=== PATIENT | female | born 1960 | race Hispanic/Latino ===

== ENCOUNTER 2017-11-25 21:25 | Inpatient (IN) | payer MEDICARE ==
[2017-11-25] MEDS ORDERED: PROVENTIL IH ONE (21:30)
[2017-11-25] MEDS ORDERED: ATROVENT IH ONE (21:30)
[2017-11-25] MEDS ORDERED: NACL 0.9% 1000 ML 1,000 ML IV ONE (21:30)
--- NOTE | 2017-11-25 21:33 | Emergency Department Report ---
ED General Adult HPI - General Stated complaint: COPD/RYLEY Time Seen by Provider: 11/25/17 21:29 Source: patient - History of Present Illness Initial comments: History of chronic lung disease previous smoker here for evaluation of acute respiratory distress worse 2 days received magnesium and Solu-Medrol and an albuterol neb in route, arrived in moderate resp distress, pt received hour long duoneb, and cxr was obtained -: Gradual, hour(s), days(s) Location: chest Consistency: intermittent Associated Symptoms: cough, diaphoresis, fever/chills, malaise, shortness of breath, weakness. denies: chest pain, headaches, loss of appetite, rash, seizure, syncope - Related Data Home Medications Medication Instructions Recorded Confirmed Last Taken Albuterol *Only Ed* [Proventil 2.5 mg IH Q4H PRN 07/12/16 07/12/16 07/12/16 0.5% NEBS] Carvedilol [Coreg] 6.25 mg PO BID 07/12/16 07/12/16 07/11/16 Furosemide [Lasix TAB] 40 mg PO DAILY 07/12/16 07/12/16 07/11/16 Iron,Carb/Vit C/Vit B12/Folic 1 tab PO DAILY 07/12/16 07/12/16 Unknown [Iron 100 Plus Tablet] LORazepam [Ativan] 1 mg PO Q4H PRN 07/12/16 07/12/16 Unknown Lisinopril [Zestril TAB] 10 mg PO QDAY 07/12/16 07/12/16 07/11/16 Simvastatin [Zocor TAB] 20 mg PO QHS 07/12/16 07/12/16 07/11/16 Spironolactone [Aldactone] 25 mg PO QDAY 07/12/16 07/12/16 Unknown Tiotropium [Spiriva] 1 puff IH BID 07/12/16 07/12/16 07/11/16 Tiotropium [Spiriva] 18 mcg IH BID 07/12/16 07/12/16 Unknown Previous Rx's Medication Instructions Recorded Last Taken Type Albuterol Sulfate [Albuterol 0.63% 0.63 mg IH TID PRN #1 box 12/03/15 07/12/16 Rx NEBS] Symbicort 160-4.5 (Nf) 1 puff INHALATION BID #1 12/03/15 Unknown Rx Levofloxacin [Levaquin TAB] 750 mg PO Q24H #5 tablet 07/16/16 Unknown Rx predniSONE [Deltasone] 50 mg PO QDAY #5 tab 07/16/16 Unknown Rx Allergies Allergy/AdvReac Type Severity Reaction Status Date / Time No Known Allergies Allergy Verified 08/06/15 17:36 ED Review of Systems ROS: Stated complaint: COPD/RYLEY Other details as noted in HPI Comment: All other systems reviewed and negative Constitutional: fever, malaise ENT: denies: dental pain, hearing loss, epistaxis Respiratory: cough, shortness of breath. denies: SOB with exertion, SOB at rest , stridor Cardiovascular: denies: chest pain, palpitations, dyspnea on exertion, orthopnea , edema, syncope, paroxysmal nocturnal dyspnea Gastrointestinal: denies: abdominal pain, nausea, vomiting, diarrhea, constipation, hematemesis, melena, hematochezia Skin: denies: rash, lesions, change in color, change in hair/nails, pruritus Neurological: denies: numbness, paresthesias, confusion Psychiatric: denies: auditory hallucinations, visual hallucinations, homicidal thoughts ED Past Medical Hx - Past Medical History Hx Hypertension: Yes Hx Heart Attack/AMI: No Hx Congestive Heart Failure: No Hx Diabetes: No Hx Deep Vein Thrombosis: No Hx Asthma: Yes Hx COPD: Yes - Surgical History Hx Coronary Stent: No Hx Pacemaker: No Hx Internal Defibrillator: No Additional Surgical History: Bilateral tubal ligation - Social History Smoking Status: Current Every Day Smoker - Medications Home Medications: Home Medications Medication Instructions Recorded Confirmed Last Taken Type Albuterol Sulfate [Albuterol 0.63% 0.63 mg IH TID PRN #1 box 12/03/15 07/12/16 07/12/16 Rx NEBS] Symbicort 160-4.5 (Nf) 1 puff INHALATION BID #1 12/03/15 07/12/16 Unknown Rx Albuterol *Only Ed* [Proventil 2.5 mg IH Q4H PRN 07/12/16 07/12/16 07/12/16 History 0.5% NEBS] Carvedilol [Coreg] 6.25 mg PO BID 07/12/16 07/12/16 07/11/16 History Furosemide [Lasix TAB] 40 mg PO DAILY 07/12/16 07/12/16 07/11/16 History Iron,Carb/Vit C/Vit B12/Folic 1 tab PO DAILY 07/12/16 07/12/16 Unknown History [Iron 100 Plus Tablet] LORazepam [Ativan] 1 mg PO Q4H PRN 07/12/16 07/12/16 Unknown History Lisinopril [Zestril TAB] 10 mg PO QDAY 07/12/16 07/12/16 07/11/16 History Simvastatin [Zocor TAB] 20 mg PO QHS 07/12/16 07/12/16 07/11/16 History Spironolactone [Aldactone] 25 mg PO QDAY 07/12/16 07/12/16 Unknown History Tiotropium [Spiriva] 1 puff IH BID 07/12/16 07/12/16 07/11/16 History Tiotropium [Spiriva] 18 mcg IH BID 07/12/16 07/12/16 Unknown History Levofloxacin [Levaquin TAB] 750 mg PO Q24H #5 tablet 07/16/16 Unknown Rx predniSONE [Deltasone] 50 mg PO QDAY #5 tab 07/16/16 Unknown Rx ED Physical Exam - General General appearance: alert, other (moderate respiratory distress with wheezes bilaterally) - Head Head exam: Present: atraumatic, normocephalic - Eye Eye exam: Present: PERRL, EOMI - Neck Neck exam: Present: normal inspection. Absent: tenderness, meningismus - Respiratory Respiratory exam: Present: respiratory distress, wheezes, rales, rhonchi, prolonged expiratory - Cardiovascular Cardiovascular Exam: Present: tachycardia. Absent: rubs, gallop - GI/Abdominal GI/Abdominal exam: Present: soft. Absent: distended, tenderness, guarding, rebound, rigid, mass, pulsatile mass - Extremities Exam Extremities exam: Absent: pedal edema, joint swelling, calf tenderness - Back Exam Back exam: Present: normal inspection. Absent: tenderness, CVA tenderness (R), CVA tenderness (L), muscle spasm, paraspinal tenderness, vertebral tenderness - Neurological Exam Neurological exam: Present: alert, oriented X3, CN II-XII intact. Absent: motor sensory deficit - Psychiatric Psychiatric exam: Present: anxious. Absent: homicidal ideation, suicidal ideation - Skin Skin exam: Absent: erythema, urticaria, vesicles, petechiae ED Course Vital Signs 11/25/17 11/25/17 11/26/17 21:30 22:17 01:08 Temperature 99.6 F Pulse Rate 106 H 99 H 97 H Respiratory 31 H 22 18 Rate Blood Pressure 112/55 Blood Pressure 128/62 118/57 [Right] O2 Sat by Pulse 99 96 98 Oximetry ED Medical Decision Making - Lab Data Result diagrams: 11/25/17 21:30 11/25/17 21:30 - Radiology Data Radiology results: report reviewed - Medical Decision Making CT shows bilateral pneumonia patient was given antibiotics and blood cultures she will be admitted given the respiratory distress and bilateral pneumonia case was discussed with Dr. Stevens on the hospitalist service for admit Critical care attestation.: If time is entered above; I have spent that time in minutes in the direct care of this critically ill patient, excluding procedure time. ED Disposition Clinical Impression: COPD (chronic obstructive pulmonary disease) with acute bronchitis, Acute bronchitis with bronchospasm, Respiratory distress, Pneumonia Disposition: 09 OP ADMIT IP TO THIS HOSP Is pt being admited?: Yes Condition: Stable Instructions: Acute Bronchitis (ED), Bacterial Pneumonia (ED) Time of Disposition: 02:09
[2017-11-25 21:55] LABS: Hemoglobin 11.5 gm/dl (10.1-14.3); Mean Corpuscular HGB Conc 34 % (30-34); Mean Corpuscular Hemoglobin 28 pg (28-32); Mean Corpuscular Volume 82 fl (79-97); Platelet Count 310 K/mm3 (140-440); Red Blood Count 4.15 M/mm3 (3.65-5.03); Red Cell Distribution Width 15.5 % (13.2-15.2)
[2017-11-25 22:23] LABS: Alanine Aminotransferase 24 units/L (7-56); Albumin 3.7 g/dL (3.9-5); BUN/Creatinine Ratio 23; Blood Urea Nitrogen 14 mg/dL (7-17); Calcium 8.9 mg/dL (8.4-10.2); Hemolysis Index 11
--- NOTE | 2017-11-25 22:41 | XRay Report ---
FINAL REPORT PROCEDURE: XR CHEST 1V AP TECHNIQUE: Chest radiograph anteroposterior view. CPT 05279 HISTORY: Dyspnea COMPARISON: No prior studies are available for comparison. FINDINGS: Heart: Normal. Mediastinum/Vessels: Normal. Lungs/Pleural space: An ill-defined nodular lesion measuring 1.5 centimeters is noted in the right upper lung. Lungs are hyperinflated. There are no confluent infiltrates. Bilateral pleural spaces are clear.. Bony thorax: No acute osseous abnormality. Life support devices: None. IMPRESSION: COPD An ill-defined nodular density in the right upper lobe is suspicious for a neoplasm. CT chest is recommended for further evaluation..
[2017-11-25 22:58] LABS: Basophils % (Manual) 0 % (0.0-1.8); Eosinophils % (Manual) 0 % (0.0-4.3); Total Cells Counted 100
[2017-11-25 22:59] LABS: Platelet Estimate Consistent w Auto; RBC Morphology Normal
--- NOTE | 2017-11-26 01:25 | Cat Scan Report ---
FINAL REPORT EXAM: CT CHEST W CON HISTORY: mass TECHNIQUE: Routine axial imaging was obtained of the thorax following the intravenous injection of 100 cc of Omnipaque 350. Sagittal and coronal reconstructions were reviewed. Correlation is made to the study 11/25/2017. FINDINGS: The lungs reveal extensive bilateral airspace disease. In the right upper lobe there is a 2.3 cm area of infiltrate. There are patchy scattered infiltrates throughout both lungs with additional areas of consolidation in the left lower lobe and also in the right lower lobe. The lungs are not overtly congested. The heart size is normal. The thoracic aorta is normal in caliber. Adenopathy is not seen. Pleural fluid is not identified. In the upper abdomen the adrenal glands are not enlarged. The skeletal structures reveal mild disc degeneration dorsal spine. The thyroid gland reveals goitrous changes along the isthmus. IMPRESSION: Extensive bilateral airspace disease with areas of consolidation as described. The findings are compatible with bilateral pneumonia. No evidence of congestion or effusions. Goitrous changes of the thyroid gland.
[2017-11-26] MEDS ORDERED: ZITHROMAX 500 MG in NACL 0.9% 250ML 250 ML IV ONE (01:46)
[2017-11-26] MEDS ORDERED: ROBITUSSIN PO PRN (03:49)
[2017-11-26] MEDS ORDERED: NON-FORMULARY (Albuterol Sulfate [Albuterol 0.63% Nebs] 0.63 MG) IH PRN (03:51)
[2017-11-26] MEDS ORDERED: PROVENTIL IH PRN (04:02)
[2017-11-26] MEDS ORDERED: DUONEB *Not for PRN Use IH (04:07)
[2017-11-26] MEDS: HEPARIN SUB-Q SCH ×2 (05:59→22:01)
[2017-11-26] MEDS ORDERED: ZOSYN/NS 3.375GM/50ML 3.375 GM/50 ML BAG IV SCH (06:00)
[2017-11-26] MEDS: BROVANA NEBU IH SCH ×2 (07:54→20:39)
[2017-11-26] MEDS: PULMICORT IH SCH ×2 (07:54→20:39)
[2017-11-26] MEDS ORDERED: ROCEPHIN/NS 1 GM/50 ML 1 GM/50 ML BAG IV SCH (10:00)
[2017-11-26] MEDS ORDERED: IRON CARB PO SCH (10:00)
[2017-11-26] MEDS ORDERED: VIT B12 PO SCH (10:00)
[2017-11-26] MEDS ORDERED: SPIRIVA IH SCH (10:00)
[2017-11-26] MEDS ORDERED: SYMBICORT INHALATION SCH (10:00)
[2017-11-26] MEDS ORDERED: FOLIC PO SCH (10:00)
[2017-11-26] MEDS ORDERED: VIT C PO SCH (10:00)
[2017-11-26] MEDS: ZESTRIL PO SCH (10:33)
[2017-11-26] MEDS: LASIX PO SCH (10:34)
[2017-11-26] MEDS: ALDACTONE PO SCH (10:34)
[2017-11-26] MEDS: COREG PO SCH ×2 (10:34→21:59)
[2017-11-26] MEDS: SPIRIVA IH SCH (10:56)
[2017-11-26] MEDS: DELTASONE PO SCH (11:03)
[2017-11-26] MEDS: cefTRIAXone 1 GM in NACL 0.9% 20 ML IV SCH (11:04)
--- NOTE | 2017-11-26 12:36 | Progress Note ---
Assessment and Plan Assessment and plan: Patient is a 57 yo woman with a history of dlp, chronic hypoxic respirtory failure on 2.5L O2 at home for end stage COPD and hypertension who pw sob. CT chest showed bilateral pneumonia -Acute on chronic hypoxic respiratory failure due to bilateral pneumonia: treat with iv abx -AE COPD, mild ex: treat with increase steroids, abx, nebs -Sepsis bilateral Pneumonia: continue iv abx -DVT prophylaxis: sq heparin -Goiter on CT chest: check tsh History Interval history: Patient was seen and examined. Follow-up on current diagnosis of sob, still present. Overnight uneventful. Patient denies any chest pain, nausea/vomiting or severe headaches. Imaging, nursing note, chart, labs and old chart reviewed. Discussed with patient. Hospitalist Physical - Physical exam Narrative exam: GEN: WDWN, NAD, Awake, Alert, Orientated x 3 HEENT: NCAT, EOMI, PERRL, OP Clear NECK: supple, no adenopathy, no thyromegaly, no JVD CVS/HEART: RRR, normal S1S2, pulses present bilaterally CHEST/LUNGS: bilateral rhonchi with diminished bs bilateral, Symmetrical chest expansion, good air entry bilaterally GI/Abdomen: soft, NTND, good bowel sounds, no guarding or rebound /Bladder: no suprapubic tenderness, no CVA or paraspinal tenderness EXT/Skin: no c/c/e, no obvious rash MSK: FROM x 4 Neuro: CN 2-12 grossly intact, no new focal deficits Psych: calm - Constitutional Vitals: Temp Pulse Resp BP Pulse Ox 97.8 F 72 20 120/64 97 11/26/17 07:41 11/26/17 10:33 11/26/17 08:02 11/26/17 10:33 11/26/17 07:52 Results - Labs CBC & Chem 7: 11/25/17 21:30 11/25/17 21:30 Labs: Laboratory Last Values WBC 20.2 K/mm3 (4.5-11.0) H 11/25/17 21:30 RBC 4.15 M/mm3 (3.65-5.03) 11/25/17 21:30 Hgb 11.5 gm/dl (10.1-14.3) 11/25/17 21:30 Hct 34.0 % (30.3-42.9) 11/25/17 21:30 MCV 82 fl (79-97) 11/25/17 21:30 MCH 28 pg (28-32) 11/25/17 21:30 MCHC 34 % (30-34) 11/25/17 21:30 RDW 15.5 % (13.2-15.2) H 11/25/17 21:30 Plt Count 310 K/mm3 (140-440) 11/25/17 21:30 Add Manual Diff Complete 11/25/17 21:30 Total Counted 100 11/25/17 21:30 Seg Neuts % (Manual) 65.0 % (40.0-70.0) 11/25/17 21:30 Band Neutrophils % 10.0 % 11/25/17 21:30 Lymphocytes % (Manual) 18.0 % (13.4-35.0) 11/25/17 21:30 Reactive Lymphs % (Man) 0 % 11/25/17 21:30 Monocytes % (Manual) 7.0 % (0.0-7.3) 11/25/17 21:30 Eosinophils % (Manual) 0 % (0.0-4.3) 11/25/17 21:30 Basophils % (Manual) 0 % (0.0-1.8) 11/25/17 21:30 Metamyelocytes % 0 % 11/25/17 21:30 Myelocytes % 0 % 11/25/17 21:30 Promyelocytes % 0 % 11/25/17 21:30 Blast Cells % 0 % 11/25/17 21:30 Nucleated RBC % Not Reportable 11/25/17 21:30 Seg Neutrophils # Man 13.1 K/mm3 (1.8-7.7) H 11/25/17 21:30 Band Neutrophils # 2.0 K/mm3 11/25/17 21:30 Lymphocytes # (Manual) 3.6 K/mm3 (1.2-5.4) 11/25/17 21:30 Abs React Lymphs (Man) 0.0 K/mm3 11/25/17 21:30 Monocytes # (Manual) 1.4 K/mm3 (0.0-0.8) H 11/25/17 21:30 Eosinophils # (Manual) 0.0 K/mm3 (0.0-0.4) 11/25/17 21:30 Basophils # (Manual) 0.0 K/mm3 (0.0-0.1) 11/25/17 21:30 Metamyelocytes # 0.0 K/mm3 11/25/17 21:30 Myelocytes # 0.0 K/mm3 11/25/17 21:30 Promyelocytes # 0.0 K/mm3 11/25/17 21:30 Blast Cells # 0.0 K/mm3 11/25/17 21:30 WBC Morphology Not Reportable 11/25/17 21:30 Hypersegmented Neuts Not Reportable 11/25/17 21:30 Hyposegmented Neuts Not Reportable 11/25/17 21:30 Hypogranular Neuts Not Reportable 11/25/17 21:30 Smudge Cells Not Reportable 11/25/17 21:30 Toxic Granulation Not Reportable 11/25/17 21:30 Toxic Vacuolation Not Reportable 11/25/17 21:30 Dohle Bodies Not Reportable 11/25/17 21:30 Pelger-Huet Anomaly Not Reportable 11/25/17 21:30 James Rods Not Reportable 11/25/17 21:30 Platelet Estimate Consistent w auto 11/25/17 21:30 Clumped Platelets Not Reportable 11/25/17 21:30 Plt Clumps, EDTA Not Reportable 11/25/17 21:30 Large Platelets Not Reportable 11/25/17 21:30 Giant Platelets Not Reportable 11/25/17 21:30 Platelet Satelliting Not Reportable 11/25/17 21:30 Plt Morphology Comment Not Reportable 11/25/17 21:30 RBC Morphology Normal 11/25/17 21:30 Dimorphic RBCs Not Reportable 11/25/17 21:30 Polychromasia Not Reportable 11/25/17 21:30 Hypochromasia Not Reportable 11/25/17 21:30 Poikilocytosis Not Reportable 11/25/17 21:30 Anisocytosis Not Reportable 11/25/17 21:30 Microcytosis Not Reportable 11/25/17 21:30 Macrocytosis Not Reportable 11/25/17 21:30 Spherocytes Not Reportable 11/25/17 21:30 Pappenheimer Bodies Not Reportable 11/25/17 21:30 Sickle Cells Not Reportable 11/25/17 21:30 Target Cells Not Reportable 11/25/17 21:30 Tear Drop Cells Not Reportable 11/25/17 21:30 Ovalocytes Not Reportable 11/25/17 21:30 Helmet Cells Not Reportable 11/25/17 21:30 [place] Bodies Not Reportable 11/25/17 21:30 [place] Rings Not Reportable 11/25/17 21:30 Oleg Cells Not Reportable 11/25/17 21:30 Bite Cells Not Reportable 11/25/17 21:30 Crenated Cell Not Reportable 11/25/17 21:30 Elliptocytes Not Reportable 11/25/17 21:30 Acanthocytes (Spur) Not Reportable 11/25/17 21:30 Rouleaux Not Reportable 11/25/17 21:30 Hemoglobin C Crystals Not Reportable 11/25/17 21:30 Schistocytes Not Reportable 11/25/17 21:30 Malaria parasites Not Reportable 11/25/17 21:30 Ralph Bodies Not Reportable 11/25/17 21:30 Hem Pathologist Commnt No 11/25/17 21:30 POC ABG pH 7.561 (7.35-7.45) H 11/25/17 22:02 POC ABG pCO2 27.3 (35-45) L 11/25/17 22:02 POC ABG pO2 68 (80-105) L 11/25/17 22:02 POC ABG HCO3 24.5 11/25/17 22:02 POC ABG Total CO2 25 11/25/17 22:02 POC ABG O2 Sat 96 11/25/17 22:02 POC ABG Base Excess 2 11/25/17 22:02 FiO2 28 % 11/25/17 22:02 Sodium 136 mmol/L (137-145) L 11/25/17 21:30 Potassium 4.0 mmol/L (3.6-5.0) 11/25/17 21:30 Chloride 95.5 mmol/L (98-107) L 11/25/17 21:30 Carbon Dioxide 23 mmol/L (22-30) 11/25/17 21:30 Anion Gap 22 mmol/L 11/25/17 21:30 BUN 14 mg/dL (7-17) 11/25/17 21:30 Creatinine 0.6 mg/dL (0.7-1.2) L 11/25/17 21:30 Estimated GFR > 60 ml/min 11/25/17 21:30 BUN/Creatinine Ratio 23 % 11/25/17 21:30 Glucose 111 mg/dL (65-100) H 11/25/17 21:30 Lactic Acid 0.70 mmol/L (0.7-2.0) 11/26/17 01:55 Calcium 8.9 mg/dL (8.4-10.2) 11/25/17 21:30 Total Bilirubin 0.60 mg/dL (0.1-1.2) 11/25/17 21:30 AST 20 units/L (5-40) 11/25/17 21:30 ALT 24 units/L (7-56) 11/25/17 21:30 Alkaline Phosphatase 89 units/L (35-129) 11/25/17 21:30 Total Protein 7.3 g/dL (6.3-8.2) 11/25/17 21:30 Albumin 3.7 g/dL (3.9-5) L 11/25/17 21:30 Albumin/Globulin Ratio 1.0 % 11/25/17 21:30
[2017-11-26] MEDS: PRAVACHOL PO SCH (21:59)
[2017-11-26] MEDS ORDERED: NON-FORMULARY (Simvastatin 20 MG) PO SCH (22:00)
[2017-11-26] MEDS ORDERED: ZITHROMAX 500 MG in NACL 0.9% 250ML 250 ML IV SCH (22:00)
[2017-11-27] MEDS: BROVANA NEBU IH SCH ×2 (08:37→19:50)
[2017-11-27] MEDS: SPIRIVA IH SCH ×2 (08:38→11:54)
[2017-11-27] MEDS: PULMICORT IH SCH ×2 (08:39→19:50)
[2017-11-27] MEDS: ALDACTONE PO SCH (09:55)
[2017-11-27] MEDS: COREG PO SCH ×2 (09:55→22:09)
[2017-11-27] MEDS: LASIX PO SCH (09:55)
[2017-11-27] MEDS: DELTASONE PO SCH (09:55)
[2017-11-27] MEDS: HEMOCYTE PLUS PO SCH (09:55)
[2017-11-27] MEDS: HEPARIN SUB-Q SCH ×2 (09:57→22:11)
[2017-11-27] MEDS: ZESTRIL PO SCH (09:57)
[2017-11-27] MEDS: cefTRIAXone 1 GM in NACL 0.9% 20 ML IV SCH (09:58)
--- NOTE | 2017-11-27 11:39 | Progress Note ---
Assessment and Plan Assessment and plan: Patient is a 57 yo woman with a history of dlp, chronic hypoxic respirtory failure on 2.5L O2 at home for end stage COPD and hypertension who pw sob. CT chest showed bilateral pneumonia -Acute on chronic hypoxic respiratory failure due to bilateral pneumonia: treat with iv abx -AE COPD, mild ex: treat with increase steroids, abx, nebs -Sepsis bilateral Pneumonia: continue iv abx -DVT prophylaxis: sq heparin -Goiter on CT chest: check tsh anticipate d/c tomorrow. History Interval history: Patient was seen and examined. Follow-up on current diagnosis of sob, improved today. Overnight uneventful. Patient denies any chest pain, nausea/vomiting or severe headaches. Imaging, nursing note, chart, labs and old chart reviewed. Discussed with patient. Hospitalist Physical - Physical exam Narrative exam: GEN: WDWN, NAD, Awake, Alert, Orientated x 3 HEENT: NCAT, EOMI, PERRL, OP Clear NECK: supple, no adenopathy, no thyromegaly, no JVD CVS/HEART: RRR, normal S1S2, pulses present bilaterally CHEST/LUNGS: bilateral rhonchi with diminished bs bilateral, Symmetrical chest expansion, good air entry bilaterally GI/Abdomen: soft, NTND, good bowel sounds, no guarding or rebound /Bladder: no suprapubic tenderness, no CVA or paraspinal tenderness EXT/Skin: no c/c/e, no obvious rash MSK: FROM x 4 Neuro: CN 2-12 grossly intact, no new focal deficits Psych: calm - Constitutional Vitals: Temp Pulse Resp BP Pulse Ox 98.6 F 74 18 110/83 96 11/26/17 21:14 11/27/17 08:45 11/27/17 08:45 11/27/17 09:57 11/27/17 08:44 Results - Labs CBC & Chem 7: 11/25/17 21:30 11/25/17 21:30 Labs: Laboratory Last Values WBC 20.2 K/mm3 (4.5-11.0) H 11/25/17 21:30 RBC 4.15 M/mm3 (3.65-5.03) 11/25/17 21:30 Hgb 11.5 gm/dl (10.1-14.3) 11/25/17 21:30 Hct 34.0 % (30.3-42.9) 11/25/17 21:30 MCV 82 fl (79-97) 11/25/17 21:30 MCH 28 pg (28-32) 11/25/17 21:30 MCHC 34 % (30-34) 11/25/17 21:30 RDW 15.5 % (13.2-15.2) H 11/25/17 21:30 Plt Count 310 K/mm3 (140-440) 11/25/17 21:30 Add Manual Diff Complete 11/25/17 21:30 Total Counted 100 11/25/17 21:30 Seg Neuts % (Manual) 65.0 % (40.0-70.0) 11/25/17 21:30 Band Neutrophils % 10.0 % 11/25/17 21:30 Lymphocytes % (Manual) 18.0 % (13.4-35.0) 11/25/17 21:30 Reactive Lymphs % (Man) 0 % 11/25/17 21:30 Monocytes % (Manual) 7.0 % (0.0-7.3) 11/25/17 21:30 Eosinophils % (Manual) 0 % (0.0-4.3) 11/25/17 21:30 Basophils % (Manual) 0 % (0.0-1.8) 11/25/17 21:30 Metamyelocytes % 0 % 11/25/17 21:30 Myelocytes % 0 % 11/25/17 21:30 Promyelocytes % 0 % 11/25/17 21:30 Blast Cells % 0 % 11/25/17 21:30 Nucleated RBC % Not Reportable 11/25/17 21:30 Seg Neutrophils # Man 13.1 K/mm3 (1.8-7.7) H 11/25/17 21:30 Band Neutrophils # 2.0 K/mm3 11/25/17 21:30 Lymphocytes # (Manual) 3.6 K/mm3 (1.2-5.4) 11/25/17 21:30 Abs React Lymphs (Man) 0.0 K/mm3 11/25/17 21:30 Monocytes # (Manual) 1.4 K/mm3 (0.0-0.8) H 11/25/17 21:30 Eosinophils # (Manual) 0.0 K/mm3 (0.0-0.4) 11/25/17 21:30 Basophils # (Manual) 0.0 K/mm3 (0.0-0.1) 11/25/17 21:30 Metamyelocytes # 0.0 K/mm3 11/25/17 21:30 Myelocytes # 0.0 K/mm3 11/25/17 21:30 Promyelocytes # 0.0 K/mm3 11/25/17 21:30 Blast Cells # 0.0 K/mm3 11/25/17 21:30 WBC Morphology Not Reportable 11/25/17 21:30 Hypersegmented Neuts Not Reportable 11/25/17 21:30 Hyposegmented Neuts Not Reportable 11/25/17 21:30 Hypogranular Neuts Not Reportable 11/25/17 21:30 Smudge Cells Not Reportable 11/25/17 21:30 Toxic Granulation Not Reportable 11/25/17 21:30 Toxic Vacuolation Not Reportable 11/25/17 21:30 Dohle Bodies Not Reportable 11/25/17 21:30 Pelger-Huet Anomaly Not Reportable 11/25/17 21:30 James Rods Not Reportable 11/25/17 21:30 Platelet Estimate Consistent w auto 11/25/17 21:30 Clumped Platelets Not Reportable 11/25/17 21:30 Plt Clumps, EDTA Not Reportable 11/25/17 21:30 Large Platelets Not Reportable 11/25/17 21:30 Giant Platelets Not Reportable 11/25/17 21:30 Platelet Satelliting Not Reportable 11/25/17 21:30 Plt Morphology Comment Not Reportable 11/25/17 21:30 RBC Morphology Normal 11/25/17 21:30 Dimorphic RBCs Not Reportable 11/25/17 21:30 Polychromasia Not Reportable 11/25/17 21:30 Hypochromasia Not Reportable 11/25/17 21:30 Poikilocytosis Not Reportable 11/25/17 21:30 Anisocytosis Not Reportable 11/25/17 21:30 Microcytosis Not Reportable 11/25/17 21:30 Macrocytosis Not Reportable 11/25/17 21:30 Spherocytes Not Reportable 11/25/17 21:30 Pappenheimer Bodies Not Reportable 11/25/17 21:30 Sickle Cells Not Reportable 11/25/17 21:30 Target Cells Not Reportable 11/25/17 21:30 Tear Drop Cells Not Reportable 11/25/17 21:30 Ovalocytes Not Reportable 11/25/17 21:30 Helmet Cells Not Reportable 11/25/17 21:30 [place] Bodies Not Reportable 11/25/17 21:30 [place] Rings Not Reportable 11/25/17 21:30 Oleg Cells Not Reportable 11/25/17 21:30 Bite Cells Not Reportable 11/25/17 21:30 Crenated Cell Not Reportable 11/25/17 21:30 Elliptocytes Not Reportable 11/25/17 21:30 Acanthocytes (Spur) Not Reportable 11/25/17 21:30 Rouleaux Not Reportable 11/25/17 21:30 Hemoglobin C Crystals Not Reportable 11/25/17 21:30 Schistocytes Not Reportable 11/25/17 21:30 Malaria parasites Not Reportable 11/25/17 21:30 Ralph Bodies Not Reportable 11/25/17 21:30 Hem Pathologist Commnt No 11/25/17 21:30 POC ABG pH 7.561 (7.35-7.45) H 11/25/17 22:02 POC ABG pCO2 27.3 (35-45) L 11/25/17 22:02 POC ABG pO2 68 (80-105) L 11/25/17 22:02 POC ABG HCO3 24.5 11/25/17 22:02 POC ABG Total CO2 25 11/25/17 22:02 POC ABG O2 Sat 96 11/25/17 22:02 POC ABG Base Excess 2 11/25/17 22:02 FiO2 28 % 11/25/17 22:02 Sodium 136 mmol/L (137-145) L 11/25/17 21:30 Potassium 4.0 mmol/L (3.6-5.0) 11/25/17 21:30 Chloride 95.5 mmol/L (98-107) L 11/25/17 21:30 Carbon Dioxide 23 mmol/L (22-30) 11/25/17 21:30 Anion Gap 22 mmol/L 11/25/17 21:30 BUN 14 mg/dL (7-17) 11/25/17 21:30 Creatinine 0.6 mg/dL (0.7-1.2) L 11/25/17 21:30 Estimated GFR > 60 ml/min 11/25/17 21:30 BUN/Creatinine Ratio 23 % 11/25/17 21:30 Glucose 111 mg/dL (65-100) H 11/25/17 21:30 Lactic Acid 0.70 mmol/L (0.7-2.0) 11/26/17 01:55 Calcium 8.9 mg/dL (8.4-10.2) 11/25/17 21:30 Total Bilirubin 0.60 mg/dL (0.1-1.2) 11/25/17 21:30 AST 20 units/L (5-40) 11/25/17 21:30 ALT 24 units/L (7-56) 11/25/17 21:30 Alkaline Phosphatase 89 units/L (35-129) 11/25/17 21:30 Total Protein 7.3 g/dL (6.3-8.2) 11/25/17 21:30 Albumin 3.7 g/dL (3.9-5) L 11/25/17 21:30 Albumin/Globulin Ratio 1.0 % 11/25/17 21:30
[2017-11-27] MEDS: TYLENOL PO PRN (17:13)
[2017-11-27] MEDS: ZITHROMAX PO SCH (22:02)
[2017-11-27] MEDS: GUAIFENESIN DM SYRUP PO PRN (22:02)
[2017-11-27] MEDS: ATIVAN PO PRN (22:02)
[2017-11-27] MEDS: PRAVACHOL PO SCH (22:02)
[2017-11-28] MEDS: ATIVAN PO PRN ×4 (03:15→21:34)
[2017-11-28] MEDS: GUAIFENESIN DM SYRUP PO PRN ×4 (03:21→21:34)
[2017-11-28] MEDS: PROVENTIL IH PRN ×3 (03:26→14:21)
[2017-11-28] MEDS: TYLENOL PO PRN (07:10)
[2017-11-28 08:31] LABS: Hematocrit 32.7 % (30.3-42.9); Hemoglobin 10.9 gm/dl (10.1-14.3); Mean Corpuscular HGB Conc 33 % (30-34); Mean Corpuscular Hemoglobin 28 pg (28-32); Mean Corpuscular Volume 82 fl (79-97); Platelet Count 333 K/mm3 (140-440); Red Blood Count 3.98 M/mm3 (3.65-5.03); Red Cell Distribution Width 15.9 % (13.2-15.2)
[2017-11-28 08:48] LABS: BUN/Creatinine Ratio 22; Blood Urea Nitrogen 11 mg/dL (7-17); Calcium 8.9 mg/dL (8.4-10.2); Hemolysis Index 0
[2017-11-28] MEDS ORDERED: SPIRIVA IH SCH (09:00)
[2017-11-28] MEDS: ZESTRIL PO SCH (09:41)
[2017-11-28] MEDS: ALDACTONE PO SCH (09:41)
[2017-11-28] MEDS: COREG PO SCH ×2 (09:41→21:35)
[2017-11-28] MEDS: LASIX PO SCH (09:41)
[2017-11-28] MEDS: HEPARIN SUB-Q SCH ×2 (09:42→22:06)
[2017-11-28] MEDS: cefTRIAXone 1 GM in NACL 0.9% 20 ML IV SCH (09:42)
[2017-11-28] MEDS: HEMOCYTE PLUS PO SCH (09:42)
[2017-11-28] MEDS: DELTASONE PO SCH (09:42)
[2017-11-28] MEDS: PULMICORT IH SCH ×2 (10:48→20:04)
[2017-11-28] MEDS: BROVANA NEBU IH SCH ×2 (10:48→20:04)
[2017-11-28] MEDS ORDERED: DUONEB *Not for PRN Use IH (19:13)
--- NOTE | 2017-11-28 19:13 | Progress Note ---
Assessment and Plan Assessment and Plan Patient is a 57 yo woman with a history of dlp, chronic hypoxic respirtory failure on 2.5L O2 at home for end stage COPD and hypertension who pw sob. CT chest showed bilateral pneumonia -Acute on chronic hypoxic respiratory failure due to bilateral pneumonia: treat with iv abx -Acute exacerbation of COPD, treat with increase steroids, abx, nebs -Sepsis bilateral Pneumonia: continue iv abx -DVT prophylaxis: sq heparin -Goiter on CT chest Subjective Date of service: 11/28/17 Principal diagnosis: acute respiratory failure and COPD exacerbation Interval history: Patient still wheezing severely and short of breath Objective - Constitutional Vitals: Vital Signs - 12hr 11/28/17 11/28/17 11/28/17 08:08 08:10 09:41 Temperature 100.4 F H Pulse Rate 82 Pulse Rate [ Anterior Bilateral Throughout] Respiratory 24 24 Rate Respiratory Rate [Anterior Bilateral Throughout] Blood Pressure 132/60 Blood Pressure 133/79 [Right] O2 Sat by Pulse Oximetry 11/28/17 11/28/17 11/28/17 10:00 10:49 15:14 Temperature 99.6 F Pulse Rate 87 Pulse Rate [ 104 H Anterior Bilateral Throughout] Respiratory 20 Rate Respiratory 19 Rate [Anterior Bilateral Throughout] Blood Pressure 104/50 Blood Pressure [Right] O2 Sat by Pulse 94 96 Oximetry General appearance: Present: mild distress, well-nourished - EENT Eyes: PERRL, EOM intact ENT: hearing intact, clear oral mucosa Ears: bilateral: normal - Neck Neck: supple, normal ROM - Respiratory Respiratory effort: normal Respiratory: bilateral: CTA, rhonchi - Breasts Breasts: normal - Cardiovascular Heart rate: 76 Rhythm: regular Heart Sounds: Present: S1 & S2. Absent: gallop, rub Extremities: no ischemia, pulses intact, No edema, normal color, Full ROM - Gastrointestinal General gastrointestinal: Present: soft, non-tender, non-distended, normal bowel sounds - Genitourinary Female genitourinary: normal - Integumentary Integumentary: clear, warm, dry - Musculoskeletal Musculoskeletal: 1, strength equal bilaterally - Neurologic Neurologic: moves all extremities - Psychiatric Psychiatric: memory intact, appropriate mood/affect, intact judgment & insight - Labs CBC & Chem 7: 11/28/17 07:22 11/28/17 07:22 Labs: Abnormal lab results 11/28/17 11/28/17 Range/Units 07:22 07:22 WBC 13.5 H (4.5-11.0) K/mm3 RDW 15.9 H (13.2-15.2) % Sodium 136 L (137-145) mmol/L Potassium 3.4 L (3.6-5.0) mmol/L Chloride 95.0 L (98-107) mmol/L Creatinine 0.5 L (0.7-1.2) mg/dL
[2017-11-28] MEDS ORDERED: ROCEPHIN/NS 2 GM/100 ML 2 GM/100 ML BAG IV SCH (20:00)
[2017-11-28] MEDS: DUONEB *Not for PRN Use IH SCH (20:36)
[2017-11-28] MEDS: PRAVACHOL PO SCH (21:34)
[2017-11-28] MEDS: ZITHROMAX PO SCH (21:34)
[2017-11-28] MEDS: cefTRIAXone 2 GM in NACL 0.9% 20 ML IV SCH (21:57)
[2017-11-29] MEDS: PROVENTIL IH PRN (02:36)
[2017-11-29] MEDS: ATIVAN PO PRN (06:39)
[2017-11-29] MEDS: GUAIFENESIN DM SYRUP PO PRN (06:39)
[2017-11-29] MEDS: DUONEB *Not for PRN Use IH SCH ×4 (08:09→22:11)
[2017-11-29 08:10] LABS: Hematocrit 33.7 % (30.3-42.9); Hemoglobin 11.5 gm/dl (10.1-14.3); Mean Corpuscular HGB Conc 34 % (30-34); Mean Corpuscular Hemoglobin 28 pg (28-32); Mean Corpuscular Volume 82 fl (79-97); Platelet Count 358 K/mm3 (140-440); Red Blood Count 4.09 M/mm3 (3.65-5.03); Red Cell Distribution Width 15.7 % (13.2-15.2)
[2017-11-29] MEDS: PULMICORT IH SCH ×2 (08:10→20:55)
[2017-11-29] MEDS: BROVANA NEBU IH SCH ×2 (08:10→20:55)
[2017-11-29 08:44] LABS: Alanine Aminotransferase 19 units/L (7-56); Albumin 3.5 g/dL (3.9-5); BUN/Creatinine Ratio 28; Blood Urea Nitrogen 11 mg/dL (7-17); Calcium 9.4 mg/dL (8.4-10.2); Hemolysis Index 2
[2017-11-29 09:44] LABS: Anisocytosis 1+; Basophils % (Manual) 0 % (0.0-1.8); Eosinophils % (Manual) 0 % (0.0-4.3); Monocytes % (Manual) 0 % (0.0-7.3); Total Cells Counted 100
[2017-11-29 09:45] LABS: Platelet Estimate Cons
[2017-11-29] MEDS: COREG PO SCH ×2 (10:00→23:41)
[2017-11-29] MEDS: ZESTRIL PO SCH (10:01)
[2017-11-29] MEDS: ALDACTONE PO SCH (10:01)
[2017-11-29] MEDS: LASIX PO SCH (10:01)
[2017-11-29] MEDS: HEPARIN SUB-Q SCH ×2 (10:03→23:41)
[2017-11-29] MEDS: HEMOCYTE PLUS PO SCH (14:38)
--- NOTE | 2017-11-29 15:17 | Progress Note ---
Assessment and Plan Assessment and Plan Patient is a 57 yo woman with a history of dlp, chronic hypoxic respirtory failure on 2.5L O2 at home for end stage COPD and hypertension who pw sob. CT chest showed bilateral pneumonia -Acute on chronic hypoxic respiratory failure due to bilateral pneumonia: treat with iv abx -Acute exacerbation of COPD, treat with increase steroids, abx, nebs -Sepsis bilateral Pneumonia: continue iv abx -DVT prophylaxis: sq heparin -Goiter on CT chest Some improvement today Probable discharge tomorrow Decrease Solumedrol to 60 q8 Subjective Date of service: 11/29/17 Principal diagnosis: acute respiratory failure and COPD exacerbation Interval history: Patient still wheezing severely and short of breath Objective - Constitutional Vitals: Vital Signs - 12hr 11/29/17 11/29/17 11/29/17 04:00 07:20 09:28 Temperature 99.2 F 99.6 F Pulse Rate 90 100 H Respiratory 22 32 H 24 Rate Blood Pressure 111/56 135/70 O2 Sat by Pulse 92 96 Oximetry General appearance: Present: mild distress, well-nourished - EENT Eyes: PERRL, EOM intact ENT: hearing intact, clear oral mucosa Ears: bilateral: normal - Neck Neck: supple, normal ROM - Respiratory Respiratory effort: normal Respiratory: bilateral: CTA, rhonchi, wheezing - Breasts Breasts: normal - Cardiovascular Heart rate: 78 Rhythm: regular Heart Sounds: Present: S1 & S2. Absent: gallop, rub Extremities: no ischemia, pulses intact, No edema, normal color, Full ROM - Gastrointestinal General gastrointestinal: Present: soft, non-tender, non-distended, normal bowel sounds - Genitourinary Female genitourinary: normal - Integumentary Integumentary: clear, warm, dry - Musculoskeletal Musculoskeletal: 1, strength equal bilaterally - Neurologic Neurologic: moves all extremities - Psychiatric Psychiatric: memory intact, appropriate mood/affect, intact judgment & insight - Labs CBC & Chem 7: 11/29/17 06:39 11/29/17 06:39 Labs: Abnormal lab results 11/29/17 11/29/17 Range/Units 06:39 06:39 WBC 12.8 H (4.5-11.0) K/mm3 RDW 15.7 H (13.2-15.2) % Seg Neuts % (Manual) 92.0 H (40.0-70.0) % Lymphocytes % (Manual) 8.0 L (13.4-35.0) % Seg Neutrophils # Man 11.8 H (1.8-7.7) K/mm3 Lymphocytes # (Manual) 1.0 L (1.2-5.4) K/mm3 Chloride 97.2 L (98-107) mmol/L Creatinine 0.4 L (0.7-1.2) mg/dL Glucose 189 H (65-100) mg/dL Albumin 3.5 L (3.9-5) g/dL
--- NOTE | 2017-11-29 19:26 | Consultation ---
History of Present Illness Consult date: 11/29/17 Reason for consult: dyspnea, cough, COPD History of present illness: PULMONARY CONSULTATION; Dr. XIE thank you for asking us to participate in the care of this patient. This is 57 year old white female Obese admitted with shortness of breath and cough with productive yellow sputum. Patient denies fever and chills. Complaining generalized aches. Denies chest pain or sore throat. Patient has heavy history of smoking. ! pack a day for 40 years. Says stopped smoking 4 months ago.Denies alcohol or drug abuse. No known drug allergies. 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 Patient has history of COPD and Hypertension. Chest xray reported COPD and ill defined nodular density right upper lobe. CAT scan of chest reported extensive air space disease consistent with Pneumonia. Patient presently resting on 2 litres O2. O2 saturation 97%. Past History Past Medical History: COPD, hypertension Medications and Allergies Allergies Allergy/AdvReac Type Severity Reaction Status Date / Time No Known Allergies Allergy Verified 08/06/15 17:36 Home Medications Medication Instructions Recorded Confirmed Last Taken Type Albuterol Sulfate [Albuterol 0.63% 0.63 mg IH TID PRN #1 box 12/03/15 07/12/16 07/12/16 Rx NEBS] Symbicort 160-4.5 (Nf) 1 puff INHALATION BID #1 12/03/15 07/12/16 Unknown Rx Albuterol *Only Ed* [Proventil 2.5 mg IH Q4H PRN 07/12/16 07/12/16 07/12/16 History 0.5% NEBS] Carvedilol [Coreg] 6.25 mg PO BID 07/12/16 07/12/16 07/11/16 History Furosemide [Lasix TAB] 40 mg PO DAILY 07/12/16 07/12/16 07/11/16 History Iron,Carb/Vit C/Vit B12/Folic 1 tab PO DAILY 07/12/16 07/12/16 Unknown History [Iron 100 Plus Tablet] LORazepam [Ativan] 1 mg PO Q4H PRN 07/12/16 07/12/16 Unknown History Lisinopril [Zestril TAB] 10 mg PO QDAY 07/12/16 07/12/16 07/11/16 History Simvastatin [Zocor TAB] 20 mg PO QHS 07/12/16 07/12/16 07/11/16 History Spironolactone [Aldactone] 25 mg PO QDAY 07/12/16 07/12/16 Unknown History Tiotropium [Spiriva] 1 puff IH BID 07/12/16 07/12/16 07/11/16 History Tiotropium [Spiriva] 18 mcg IH BID 07/12/16 07/12/16 Unknown History Levofloxacin [Levaquin TAB] 750 mg PO Q24H #5 tablet 07/16/16 Unknown Rx predniSONE [Deltasone] 50 mg PO QDAY #5 tab 07/16/16 Unknown Rx Active Meds: Active Medications Acetaminophen (Tylenol) 650 mg PO Q4H PRN PRN Reason: For Pain/Fever/Headache Last Admin: 11/28/17 07:10 Dose: 650 mg Albuterol (Proventil) 2.5 mg IH Q3HRT PRN PRN Reason: Shortness Of Breath Last Admin: 11/29/17 02:36 Dose: 2.5 mg Albuterol/Ipratropium (Duoneb *Not For Prn Use*) 1 ampul IH QIDRT [facility] Last Admin: 11/29/17 18:38 Dose: 1 ampul Arformoterol Tartrate (Brovana Nebu) 15 mcg IH Q12HRT [facility] Last Admin: 11/29/17 08:10 Dose: 15 mcg Azithromycin (Zithromax) 500 mg PO QHS [facility] Last Admin: 11/28/17 21:34 Dose: 500 mg Budesonide (Pulmicort) 1 mg IH Q12HRT [facility] Last Admin: 11/29/17 08:10 Dose: 1 mg Carvedilol (Coreg) 6.25 mg PO BID [facility] Last Admin: 11/29/17 10:00 Dose: 6.25 mg Furosemide (Lasix) 40 mg PO DAILY [facility] Last Admin: 11/29/17 10:01 Dose: 40 mg Guaifenesin (Guaifenesin Dm Syrup) 10 ml PO Q4H PRN PRN Reason: Cough Last Admin: 11/29/17 06:39 Dose: 10 ml Heparin Sodium (Porcine) (Heparin) 5,000 unit SUB-Q Q12HR [facility] Last Admin: 11/29/17 10:03 Dose: Not Given Ceftriaxone Sodium 2 gm/ (Sodium Chloride) 20 mls @ 2 mls/min IV Q24H [facility] Last Admin: 11/28/17 21:57 Dose: 2 mls/min Lisinopril (Zestril) 10 mg PO QDAY [facility] Last Admin: 11/29/17 10:01 Dose: 10 mg Lorazepam (Ativan) 1 mg PO Q4H PRN PRN Reason: Anxiety Last Admin: 11/29/17 06:39 Dose: 1 mg Methylprednisolone Sodium Succinate (Solu-Medrol) 125 mg IV Q8HR [facility] Last Admin: 11/29/17 14:38 Dose: 125 mg Multivitamins/Iron (Hemocyte Plus) 1 each PO QDAY [facility] Last Admin: 11/29/17 14:38 Dose: 1 each Pravastatin Sodium (Pravachol) 40 mg PO QHS [facility] Last Admin: 11/28/17 21:34 Dose: 40 mg Spironolactone (Aldactone) 25 mg PO QDAY [facility] Last Admin: 11/29/17 10:01 Dose: 25 mg Review of Systems All systems: negative Physical Examination Vital signs: Vital Signs Temp Pulse Resp BP Pulse Ox 99.6 F 106 H 31 H 112/55 99 11/25/17 21:30 11/25/17 21:30 11/25/17 21:30 11/25/17 21:30 11/25/17 21:30 General appearance: no acute distress, alert Eyes: non-icteric ENT: oropharynx moist Neck: supple, no JVD Effort: mildly labored Ascultation: Bilateral: diminished breath sounds, rhonchi Cardiovascular: regular rate and rhythm Gastrointestinal: normoactive bowel sounds, soft, non-tender Integumentary: normal Extremities: no cyanosis, no edema Musculoskeletal: no deformities Gait: normal gait normal mental status, non-focal exam, pupils equal and round, CN II-XII normal mood appropriate Results - Laboratory Findings CBC and BMP: 11/29/17 06:39 11/29/17 06:39 ABG POC ABG pH 7.561 (7.35-7.45) H 11/25/17 22:02 POC ABG pCO2 27.3 (35-45) L 11/25/17 22:02 POC ABG pO2 68 (80-105) L 11/25/17 22:02 POC ABG HCO3 24.5 11/25/17 22:02 POC ABG Total CO2 25 11/25/17 22:02 POC ABG O2 Sat 96 11/25/17 22:02 Abnormal lab findings: Abnormal Labs 11/25/17 11/25/17 11/25/17 21:30 21:30 21:50 WBC 20.2 H RDW 15.5 H Seg Neuts % (Manual) Lymphocytes % (Manual) Seg Neutrophils # Man 13.1 H Lymphocytes # (Manual) Monocytes # (Manual) 1.4 H POC ABG pH 7.587 H POC ABG pCO2 23.8 L POC ABG pO2 50 L Sodium 136 L Potassium Chloride 95.5 L Creatinine 0.6 L Glucose 111 H Albumin 3.7 L 11/25/17 11/28/17 11/28/17 22:02 07:22 07:22 WBC 13.5 H RDW 15.9 H Seg Neuts % (Manual) Lymphocytes % (Manual) Seg Neutrophils # Man Lymphocytes # (Manual) Monocytes # (Manual) POC ABG pH 7.561 H POC ABG pCO2 27.3 L POC ABG pO2 68 L Sodium 136 L Potassium 3.4 L Chloride 95.0 L Creatinine 0.5 L Glucose Albumin 11/29/17 11/29/17 06:39 06:39 WBC 12.8 H RDW 15.7 H Seg Neuts % (Manual) 92.0 H Lymphocytes % (Manual) 8.0 L Seg Neutrophils # Man 11.8 H Lymphocytes # (Manual) 1.0 L Monocytes # (Manual) POC ABG pH POC ABG pCO2 POC ABG pO2 Sodium Potassium Chloride 97.2 L Creatinine 0.4 L Glucose 189 H Albumin 3.5 L - Diagnostic Findings Chest x-ray: report reviewed (Ill defined nodular lesion right upper lobe. Recommended CT of chest.) CT scan - chest: report reviewed (Compatable with bilateral pneumonia.) Assessment and Plan This is 57 year old white female Obese admitted with shortness of breath and cough with productive yellow sputum. Patient denies fever and chills. Complaining generalized aches. Denies chest pain or sore throat. Patient has heavy history of smoking. ! pack a day for 40 years. Says stopped smoking 4 months ago.Denies alcohol or drug abuse. No known drug allergies. 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 Patient has history of COPD and Hypertension. Chest xray reported COPD and ill defined nodular density right upper lobe. CAT scan of chest reported extensive air space disease consistent with Pneumonia. Patient presently resting on 2 litres O2. O2 saturation 97%. - Patient Problems (1) COPD (chronic obstructive pulmonary disease) with acute bronchitis Current Visit: Yes Status: Acute Plan to address problem: O2 2 litres via nasal canula. Albuterol/atrovent aerosol treatments q 6 hours. Continue I/V solumedral Continue ceftrioxone and zithromax. Continue S/C Heparin. (2) Pneumonia Current Visit: Yes Status: Acute Plan to address problem: Patient is on ceftrioxone and zithromax. (3) Respiratory distress Current Visit: Yes Status: Acute Plan to address problem: O2 2 litres via nasal canula. Albuterol/atrovent aerosol treatments q 6 hours. Continue I/V solumedral Continue ceftrioxone and zithromax. Continue S/C Heparin
[2017-11-29] MEDS: ZITHROMAX PO SCH (23:40)
[2017-11-29] MEDS: cefTRIAXone 2 GM in NACL 0.9% 20 ML IV SCH (23:40)
[2017-11-29] MEDS: PRAVACHOL PO SCH (23:41)
[2017-11-30] MEDS: PROVENTIL IH PRN (04:30)
--- NOTE | 2017-11-30 07:12 | History and Physical Report ---
DATE OF ADMISSION: 11/26/2017 CHIEF COMPLAINT: Difficulty in breathing. HISTORY OF PRESENT ILLNESS: The patient is a 57-year-old female with history of COPD, presenting with difficulty in breathing going on for 2 days. There is also history of associated fever, chills, and also the patient had complained about cough productive of yellow to greenish sputum. There is no history of chest pain. No history of nausea and vomiting, and the patient presented for evaluation and chest x-ray done initially that was suspicious for right upper lobe mass, but the CT of the chest shows bilateral airspace disease suggestive of pneumonia with the right upper lobe suspicious mass on the x-ray being seen as infiltrate. PAST MEDICAL HISTORY: Pertinent for asthma, COPD, hypertension. PAST SURGICAL HISTORY: Pertinent for bilateral tubal ligation. FAMILY HISTORY: Noncontributory. SOCIAL HISTORY: The patient smokes cigarettes, does say she just quit recently, does not drink alcohol, and does not use illicit drugs. MEDICATIONS: The patient is on albuterol sulfate inhalation 3 times daily, Symbicort inhalation twice daily, carvedilol 6.25 mg by mouth twice daily, Lasix 40 mg by mouth daily, iron/vitamin C/B12/folic acid 1 by mouth daily, lorazepam 1 mg by mouth every 4 hours as needed for anxiety, and restlessness, lisinopril 10 mg by mouth daily, Zocor, simvastatin 20 mg by mouth daily, Aldactone 25 mg by mouth daily, Spiriva one puff inhalation twice daily, Levaquin 750 mg by mouth daily, prednisone 50 mg by mouth daily. ALLERGIES: There are no known drug allergies. REVIEW OF SYSTEMS: CONSTITUTIONAL: Denies fever, chills, no diaphoresis. HEENT: There is no headache or sore throat. CARDIOVASCULAR SYSTEM: There is no chest pain or orthopnea. RESPIRATORY SYSTEM: Shortness of breath present. Cough present. GASTROINTESTINAL SYSTEM: There is no nausea, no vomiting, no abdominal pain, diarrhea or constipation. NEUROLOGICAL SYSTEM: There is no numbness, no dizziness, no altered mental status. MUSCULOSKELETAL SYSTEM: There is no joint pain or swelling. DERMATOLOGICAL SYSTEM: There is no skin rash or itching. GENITOURINARY SYSTEM: There is no dysuria, hematuria, or flank pain. Rest of system review is normal. PHYSICAL EXAMINATION: GENERAL: At the time of exam, the patient was found to be alert, oriented x 3, not in acute distress. VITAL SIGNS: Shows temperature of 99.2 degrees Fahrenheit, pulse of 79, respiration 19, blood pressure 108/62, and O2 sat of 98% on room air. HEENT: Exam showed pupils to be equal, round, and reactive to light and accommodation. Extraocular muscles are intact. NECK: Supple with no JVD or carotid bruit. CARDIOVASCULAR SYSTEM: Show normal first and second heart sound with no gallops or murmur. RESPIRATORY SYSTEM: Show good air entry on both sides of the lung with respiratory wheezing. GASTROINTESTINAL SYSTEM: Show abdomen to be full, soft, and nontender with no organomegaly or rigidity. NEUROLOGICAL: Exam shows focal deficit. MUSCULOSKELETAL SYSTEM: Show no joint swelling or tenderness. DERMATOLOGICAL SYSTEM: Show no skin rash. GENITOURINARY SYSTEM: Showing no of costovertebral angle tenderness. PERTINENT LABORATORY STUDIES: The patient has CBC done with elevated white count of 20,200, with normal hemoglobin, normal hematocrit, normal MCV, and CBC differential show elevated segmented neutrophils. The patient's blood gas shows high pH of 7.5, low pCO2 of 27.3, and low pO2 of 68. Chemistry shows low sodium of 136, normal potassium, low chloride of 95.5. Unremarkable renal function test. Lactic acid level was normal. IMAGING STUDIES: The patient had a chest x-ray done that was read as showing COPD and also ill-defined nodular density in the right upper lobe, which the radiologist is very suspicious for a neoplasm and recommended to do a CT of the chest for further evaluation. The patient had CT of the chest done with contrast because of the mass, but the findings was read as showing extensive bilateral end space disease with area of consolidation as described and the radiologist said that the findings are compatible with bilateral pneumonia, and said, there is no evidence of congestion or effusion. changes of the thyroid gland and in the body of the reading, the radiologist said that there is right upper lobe 2.6 area of infiltrate. DIAGNOSES: 1. Bilateral pneumonia. 2. Chronic obstructive pulmonary disease exacerbation. PLAN: 1. The patient will be admitted to medical floor and will be on intravenous ceftriaxone 1 g daily and intravenous Zithromax 500 mg daily. The patient will be on Tylenol 650 mg by mouth every 4 for fever and headaches and will be on albuterol nebulizer every 4 hours as needed for shortness of breath and wheezing. 2. Deep venous thrombosis prophylaxis with heparin 5000 units subcutaneous every 12 hours. 3. The patient will be on her home medications as shown in the medication reconciliation section. 4. The patient will also be on oxygen by nasal cannula 2 liters per minute. 5. The patient will be also on intravenous Zofran 4 mg every 6 hours for nausea and vomiting. JOB# [id number] OCN/NTS
[2017-11-30] MEDS: PULMICORT IH SCH ×2 (08:41→19:20)
[2017-11-30] MEDS: DUONEB *Not for PRN Use IH SCH ×4 (08:41→21:06)
[2017-11-30] MEDS: BROVANA NEBU IH SCH ×3 (08:45→19:20)
[2017-11-30] MEDS: ALDACTONE PO SCH (11:36)
[2017-11-30] MEDS: COREG PO SCH ×2 (11:37→23:23)
[2017-11-30] MEDS: ZESTRIL PO SCH (11:37)
[2017-11-30] MEDS: HEMOCYTE PLUS PO SCH (11:37)
[2017-11-30] MEDS: LASIX PO SCH (11:38)
[2017-11-30] MEDS: HEPARIN SUB-Q SCH ×2 (11:38→23:24)
--- NOTE | 2017-11-30 13:42 | Progress Note ---
Assessment and Plan This is 57 year old white female Obese admitted with shortness of breath and cough with productive yellow sputum. Patient denies fever and chills. Complaining generalized aches. Denies chest pain or sore throat. Patient has heavy history of smoking. ! pack a day for 40 years. Says stopped smoking 4 months ago.Denies alcohol or drug abuse. No known drug allergies. 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 Patient has history of COPD and Hypertension. Chest xray reported COPD and ill defined nodular density right upper lobe. CAT scan of chest reported extensive air space disease consistent with Pneumonia. Patient presently resting on 2 litres O2. O2 saturation 97%. 11/30/17 Patient alert, awake. Resting on nasal canula 2 litres, O2 saturation 94%.Says breathing better. No acute respiratory distress.Patient said she already has home O2. Patient says she already has senior information security consultant as out patient. Recommend to follow with them, once she is discharged. - Patient Problems (1) COPD (chronic obstructive pulmonary disease) with acute bronchitis Current Visit: Yes Status: Acute Plan to address problem: O2 2 litres via nasal canula. Albuterol/atrovent aerosol treatments q 6 hours. Continue I/V solumedral Continue ceftrioxone and zithromax. Continue S/C Heparin. (2) Pneumonia Current Visit: Yes Status: Acute Plan to address problem: Patient is on ceftrioxone and zithromax. (3) Respiratory distress Current Visit: Yes Status: Acute Plan to address problem: O2 2 litres via nasal canula. Albuterol/atrovent aerosol treatments q 6 hours. Continue I/V solumedral Continue ceftrioxone and zithromax. Continue S/C Heparin Subjective Date of service: 11/30/17 Principal diagnosis: acute respiratory failure and COPD exacerbation Interval history: Patient alert, awake. Resting on nasal canula 2 litres, O2 saturation 94%.Says breathing better. No acute respiratory distress.Patient said she already has home O2. Patient says she already has senior information security consultant as out patient. Recommend to follow with them, once she is discharged. Objective Vital Signs - 12hr 11/30/17 11/30/17 11/30/17 04:30 04:42 08:30 Temperature 98.0 F Pulse Rate 74 Pulse Rate [ 103 H 106 H Anterior Bilateral Throughout] Respiratory 20 Rate Respiratory 18 20 Rate [Anterior Bilateral Throughout] Blood Pressure 134/73 O2 Sat by Pulse 94 Oximetry 11/30/17 11/30/17 11/30/17 08:46 09:10 09:11 Temperature Pulse Rate Pulse Rate [ 97 H 99 H 99 H Anterior Bilateral Throughout] Respiratory 16 Rate Respiratory 21 19 19 Rate [Anterior Bilateral Throughout] Blood Pressure O2 Sat by Pulse 94 Oximetry Constitutional: no acute distress, alert Eyes: non-icteric ENT: oropharynx moist Neck: supple, no JVD Effort: mildly labored Ascultation: Bilateral: diminished breath sounds, rhonchi Cardiovascular: regular rate and rhythm Gastrointestinal: normoactive bowel sounds, soft, non-tender Integumentary: normal Extremities: no cyanosis, no edema Neurologic: normal mental status, non-focal exam, pupils equal and round, CN II- XII normal Psychiatric: mood appropriate CBC and BMP: 11/29/17 06:39 11/29/17 06:39 ABG, PT/INR, D-dimer: ABG POC ABG pH 7.561 (7.35-7.45) H 11/25/17 22:02 POC ABG pCO2 27.3 (35-45) L 11/25/17 22:02 POC ABG pO2 68 (80-105) L 11/25/17 22:02 POC ABG HCO3 24.5 11/25/17 22:02 POC ABG Total CO2 25 11/25/17 22:02 POC ABG O2 Sat 96 11/25/17 22:02 Abnormal lab findings: Abnormal Labs 11/25/17 11/25/17 11/25/17 21:30 21:30 21:50 WBC 20.2 H RDW 15.5 H Seg Neuts % (Manual) Lymphocytes % (Manual) Seg Neutrophils # Man 13.1 H Lymphocytes # (Manual) Monocytes # (Manual) 1.4 H POC ABG pH 7.587 H POC ABG pCO2 23.8 L POC ABG pO2 50 L Sodium 136 L Potassium Chloride 95.5 L Creatinine 0.6 L Glucose 111 H Albumin 3.7 L 11/25/17 11/28/17 11/28/17 22:02 07:22 07:22 WBC 13.5 H RDW 15.9 H Seg Neuts % (Manual) Lymphocytes % (Manual) Seg Neutrophils # Man Lymphocytes # (Manual) Monocytes # (Manual) POC ABG pH 7.561 H POC ABG pCO2 27.3 L POC ABG pO2 68 L Sodium 136 L Potassium 3.4 L Chloride 95.0 L Creatinine 0.5 L Glucose Albumin 11/29/17 11/29/17 06:39 06:39 WBC 12.8 H RDW 15.7 H Seg Neuts % (Manual) 92.0 H Lymphocytes % (Manual) 8.0 L Seg Neutrophils # Man 11.8 H Lymphocytes # (Manual) 1.0 L Monocytes # (Manual) POC ABG pH POC ABG pCO2 POC ABG pO2 Sodium Potassium Chloride 97.2 L Creatinine 0.4 L Glucose 189 H Albumin 3.5 L
--- NOTE | 2017-11-30 16:45 | Progress Note ---
Assessment and Plan Assessment and Plan Patient is a 57 yo woman with a history of dlp, chronic hypoxic respirtory failure on 2.5L O2 at home for end stage COPD and hypertension who pw sob. CT chest showed bilateral pneumonia -Acute on chronic hypoxic respiratory failure due to bilateral pneumonia: treat with iv abx -Acute exacerbation of COPD, treat with increase steroids, abx, nebs -Sepsis bilateral Pneumonia: continue iv abx -DVT prophylaxis: sq heparin -Goiter on CT chest Some improvement today Probable discharge tomorrow Decrease Solumedrol to 60 q8 Subjective Date of service: 11/30/17 Principal diagnosis: acute respiratory failure and COPD exacerbation Interval history: Patient still wheezing severely and short of breath Objective - Constitutional Vitals: Vital Signs - 12hr 11/30/17 11/30/17 11/30/17 08:30 08:46 09:10 Temperature 98.0 F Pulse Rate 74 Pulse Rate [ 97 H 99 H Anterior Bilateral Throughout] Respiratory 20 16 Rate Respiratory 21 19 Rate [Anterior Bilateral Throughout] Blood Pressure 134/73 O2 Sat by Pulse 94 94 Oximetry 11/30/17 11/30/17 11/30/17 09:11 12:00 14:09 Temperature Pulse Rate Pulse Rate [ 99 H 107 H 112 H Anterior Bilateral Throughout] Respiratory Rate Respiratory 19 19 20 Rate [Anterior Bilateral Throughout] Blood Pressure O2 Sat by Pulse Oximetry General appearance: Present: no acute distress, well-nourished - EENT Eyes: PERRL, EOM intact ENT: hearing intact, clear oral mucosa Ears: bilateral: normal - Neck Neck: supple, normal ROM - Respiratory Respiratory effort: normal Respiratory: bilateral: CTA, rhonchi - Breasts Breasts: normal - Cardiovascular Heart rate: 78 Rhythm: regular Heart Sounds: Present: S1 & S2. Absent: gallop, rub Extremities: no ischemia, pulses intact, No edema, normal color, Full ROM - Gastrointestinal General gastrointestinal: Present: soft, non-tender, non-distended, normal bowel sounds - Genitourinary Female genitourinary: normal - Integumentary Integumentary: clear, warm, dry - Musculoskeletal Musculoskeletal: 1, strength equal bilaterally - Neurologic Neurologic: moves all extremities - Psychiatric Psychiatric: memory intact, appropriate mood/affect, intact judgment & insight - Labs CBC & Chem 7: 11/29/17 06:39 11/29/17 06:39
[2017-11-30] MEDS: cefTRIAXone 2 GM in NACL 0.9% 20 ML IV SCH (23:22)
[2017-11-30] MEDS: GUAIFENESIN DM SYRUP PO PRN (23:22)
[2017-11-30] MEDS: ZITHROMAX PO SCH (23:23)
[2017-11-30] MEDS: PRAVACHOL PO SCH (23:24)
[2017-11-30] MEDS: ATIVAN PO PRN (23:25)
[2017-12-01 07:59] LABS: Hematocrit 35.1 % (30.3-42.9); Hemoglobin 11.1 gm/dl (10.1-14.3); Mean Corpuscular HGB Conc 32 % (30-34); Mean Corpuscular Hemoglobin 27 pg (28-32); Mean Corpuscular Volume 84 fl (79-97); Platelet Count 428 K/mm3 (140-440); Red Blood Count 4.19 M/mm3 (3.65-5.03); Red Cell Distribution Width 15.5 % (13.2-15.2)
[2017-12-01 08:05] LABS: Alanine Aminotransferase 20 units/L (7-56); Albumin 3.2 g/dL (3.9-5); BUN/Creatinine Ratio 34; Blood Urea Nitrogen 17 mg/dL (7-17); Calcium 9.3 mg/dL (8.4-10.2); Hemolysis Index 15
[2017-12-01] MEDS: PULMICORT IH SCH (09:20)
[2017-12-01] MEDS: BROVANA NEBU IH SCH (09:21)
[2017-12-01] MEDS: DUONEB *Not for PRN Use IH SCH ×3 (09:21→16:33)
[2017-12-01] MEDS: HEPARIN SUB-Q SCH (09:54)
[2017-12-01] MEDS: LASIX PO SCH (09:55)
[2017-12-01] MEDS: ALDACTONE PO SCH (09:55)
[2017-12-01] MEDS: COREG PO SCH (09:55)
[2017-12-01] MEDS: HEMOCYTE PLUS PO SCH (09:55)
[2017-12-01] MEDS: ZESTRIL PO SCH (09:55)
[2017-12-01 10:12] LABS: Basophils % (Manual) 0 % (0.0-1.8); Eosinophils % (Manual) 0 % (0.0-4.3); Myelocytes # (Manual) 0.2 K/mm3; Total Cells Counted 100
[2017-12-01 10:13] LABS: Platelet Estimate Consistent w Auto
--- NOTE | 2017-12-01 11:03 | Progress Note ---
Assessment and Plan -Acute on chronic hypoxic respiratory failure due to bilateral pneumonia -Acute exacerbation of COPD -Sepsis -Bilateral Pneumonia -Morbid obesity -Goiter on CT chest Subjective Date of service: 12/01/17 Principal diagnosis: acute respiratory failure and COPD exacerbation Objective - Exam Narrative Exam: GEN: WDWN, NAD, Awake, Alert, Orientated x 3 HEENT: NCAT, EOMI, PERRL, OP Clear NECK: supple, no adenopathy, no thyromegaly, no JVD CVS/HEART: RRR, normal S1S2, pulses present bilaterally CHEST/LUNGS: bilateral rhonchi with diminished bs bilateral, Symmetrical chest expansion, good air entry bilaterally GI/Abdomen: soft, NTND, good bowel sounds, no guarding or rebound /Bladder: no suprapubic tenderness, no CVA or paraspinal tenderness EXT/Skin: no c/c/e, no obvious rash MSK: FROM x 4 Neuro: CN 2-12 grossly intact, no new focal deficits Psych: calm Vital Signs - 12hr 11/30/17 12/01/17 12/01/17 23:23 07:55 09:55 Temperature 97.9 F Pulse Rate 87 79 78 Respiratory 20 Rate Blood Pressure 135/72 141/77 140/78 O2 Sat by Pulse 95 Oximetry Constitutional: no acute distress, alert Eyes: non-icteric ENT: oropharynx moist Neck: supple, no JVD Effort: mildly labored Ascultation: Bilateral: diminished breath sounds, rhonchi Cardiovascular: regular rate and rhythm Gastrointestinal: normoactive bowel sounds, soft, non-tender Integumentary: normal Extremities: no cyanosis, no edema Neurologic: normal mental status, non-focal exam, pupils equal and round, CN II- XII normal Psychiatric: mood appropriate CBC and BMP: 12/01/17 06:09 12/01/17 06:09 ABG, PT/INR, D-dimer: ABG POC ABG pH 7.561 (7.35-7.45) H 11/25/17 22:02 POC ABG pCO2 27.3 (35-45) L 11/25/17 22:02 POC ABG pO2 68 (80-105) L 11/25/17 22:02 POC ABG HCO3 24.5 11/25/17 22:02 POC ABG Total CO2 25 11/25/17 22:02 POC ABG O2 Sat 96 11/25/17 22:02 Abnormal lab findings: Abnormal Labs 11/25/17 11/25/17 11/25/17 21:30 21:30 21:50 WBC 20.2 H MCH RDW 15.5 H Seg Neuts % (Manual) Lymphocytes % (Manual) Seg Neutrophils # Man 13.1 H Lymphocytes # (Manual) Monocytes # (Manual) 1.4 H POC ABG pH 7.587 H POC ABG pCO2 23.8 L POC ABG pO2 50 L Sodium 136 L Potassium Chloride 95.5 L Carbon Dioxide Creatinine 0.6 L Glucose 111 H Albumin 3.7 L 11/25/17 11/28/17 11/28/17 22:02 07:22 07:22 WBC 13.5 H MCH RDW 15.9 H Seg Neuts % (Manual) Lymphocytes % (Manual) Seg Neutrophils # Man Lymphocytes # (Manual) Monocytes # (Manual) POC ABG pH 7.561 H POC ABG pCO2 27.3 L POC ABG pO2 68 L Sodium 136 L Potassium 3.4 L Chloride 95.0 L Carbon Dioxide Creatinine 0.5 L Glucose Albumin 11/29/17 11/29/17 12/01/17 06:39 06:39 06:09 WBC 12.8 H 19.8 H MCH 27 L RDW 15.7 H 15.5 H Seg Neuts % (Manual) 92.0 H 93.0 H Lymphocytes % (Manual) 8.0 L 5.0 L Seg Neutrophils # Man 11.8 H 18.4 H Lymphocytes # (Manual) 1.0 L 1.0 L Monocytes # (Manual) POC ABG pH POC ABG pCO2 POC ABG pO2 Sodium Potassium Chloride 97.2 L Carbon Dioxide Creatinine 0.4 L Glucose 189 H Albumin 3.5 L 12/01/17 06:09 WBC MCH RDW Seg Neuts % (Manual) Lymphocytes % (Manual) Seg Neutrophils # Man Lymphocytes # (Manual) Monocytes # (Manual) POC ABG pH POC ABG pCO2 POC ABG pO2 Sodium 132 L Potassium Chloride 83.7 L Carbon Dioxide 35 H D Creatinine 0.5 L Glucose 168 H Albumin 3.2 L
[2017-12-01 16:03] VITALS: BP 116/65
--- NOTE | 2017-12-01 17:21 | Discharge Summary ---
Providers - Providers Date of Admission: 11/26/17 03:46 Date of discharge: 12/01/17 Attending physician: JYOTHI CHUNG 11/28/17 19:16 Consult to Physician [CONS] Routine Comment: Consulting Provider: AYANNA JOHN Physician Instructions: Reason For Exam: acute respiratory failure Primary care physician: [facility] Hospitalization Condition: Stable Hospital course: Assessment and Plan Patient is a 57 yo woman with a history of dlp, chronic hypoxic respirtory failure on 2.5L O2 at home for end stage COPD and hypertension who pw sob. CT chest showed bilateral pneumonia -Acute on chronic hypoxic respiratory failure due to bilateral pneumonia: treat with iv abx--Improved -Acute exacerbation of COPD, treat with increase steroids, abx, nebs --Improved -Sepsis bilateral Pneumonia: continue iv abx -DVT prophylaxis: sq heparin -Goiter on CT chest Good improvement today Disposition: DC- TO HOME OR SELFCARE Core Measure Documentation - Palliative Care Palliative Care/ Comfort Measures: Not Applicable - Core Measures Any of the following diagnoses?: none Exam - Constitutional Vitals: Temp Pulse Resp BP Pulse Ox 98.8 F 85 20 116/65 95 12/01/17 15:54 12/01/17 16:43 12/01/17 16:43 12/01/17 15:54 12/01/17 15:54 - Respiratory Respiratory: bilateral: CTA - Cardiovascular Heart rate: 80 - Extremities Extremities: no ischemia, pulses intact - Abdominal General gastrointestinal: Present: deferred - Rectal Rectal Exam: deferred - Integumentary Integumentary: Present: clear, warm, dry - Musculoskeletal Musculoskeletal: gait normal, strength equal bilaterally - Psychiatric Psychiatric: appropriate mood/affect, intact judgment & insight - Neurologic Neurologic: CNII-XII intact, moves all extremities - Allied Health Allied health notes reviewed: nursing, case management Plan Activity: no restrictions Diet: low salt, diabetic Follow up with: PRIMARY CAREMD [Primary Care Provider] - 3-5 Days AYANNA JOHN MD [Staff Physician] - 7 Days
== END 2017-12-01 20:21 | disposition home or self-care (01) | DRG 871 ==
LOC: ED 21:25 → 3A 11-26 03:46
PROVIDERS: ADMIT Internal Medicine; ATTEND Internal Medicine
PROC: 4A033R1 Measurement of Arterial Saturation, Peripheral, Percutaneous Approach (ICD-10-PCS; principal; 2017-11-25)
DX: A41.9 Sepsis, unspecified organism (principal); J18.9 Pneumonia, unspecified organism; J96.21 Acute and chronic respiratory failure with hypoxia; J44.1 Chronic obstructive pulmonary disease with (acute) exacerbation; J44.0 Chronic obstructive pulmonary disease with (acute) lower respiratory infection; E78.5 Hyperlipidemia, unspecified; Z99.81 Dependence on supplemental oxygen; I10 Essential (primary) hypertension; F17.210 Nicotine dependence, cigarettes, uncomplicated; J45.909 Unspecified asthma, uncomplicated; Z79.899 Other long term (current) drug therapy; Z98.51 Tubal ligation status; J20.9 Acute bronchitis, unspecified; E66.01 Morbid (severe) obesity due to excess calories; E04.9 Nontoxic goiter, unspecified; Z68.36 Body mass index [BMI] 36.0-36.9, adult
CPT/HCPCS: 36415; 71045; 71260; 80048; 80053; 82140; 82803; 84443; 85007; 85025; 85027; 87040; 93005; 93010; 94640; 94760; 96361; 96365; 96366; A9270-GY; J0456; J0696; J1644; J2543; J2930; J7030; J7050; J7512; Q9967

== ENCOUNTER 2018-01-22 17:29 | Emergency (ER) | payer MEDICARE ==
--- NOTE | 2018-01-22 18:13 | Emergency Department Report ---
HPI - General Chief Complaint: Dyspnea/Respdistress Time Seen by Provider: 01/22/18 17:38 - HPI HPI: Room 1 The patient is a 57-year-old female presenting with chief complaint of shortness of breath. Patient states she ran out of prednisone a few days ago and for the past 2 days she's had shortness of breath wheezing or hoarseness. The patient is to call this occasional productive yellow sputum. Patient denies fever or rhinorrhea. Patient admits to body aches all over Location: Lungs Duration: 2 days Quality: Shortness of breath Severity: Moderate Modifying factors: [see above] Context: [see above] Mode of transportation: [not driving] ED Past Medical Hx - Past Medical History Hx Hypertension: Yes Hx Asthma: Yes Hx COPD: Yes - Surgical History Additional Surgical History: Bilateral tubal ligation - Family History Family history: no significant - Social History Smoking Status: Former Smoker (none 4 months) Substance Use Type: None - Medications Home Medications: Home Medications Medication Instructions Recorded Confirmed Last Taken Type Symbicort 160-4.5 (Nf) 1 puff INHALATION BID #1 12/03/15 07/12/16 Unknown Rx Albuterol *Only Ed* [Proventil 2.5 mg IH Q4H PRN 07/12/16 07/12/16 07/12/16 History 0.5% NEBS] Spironolactone [Aldactone] 25 mg PO QDAY 07/12/16 07/12/16 Unknown History Tiotropium [Spiriva] 1 puff IH BID 07/12/16 07/12/16 07/11/16 History Tiotropium [Spiriva] 18 mcg IH BID 07/12/16 07/12/16 Unknown History Albuterol Sulfate [Albuterol 0.63% 0.63 mg IH TID PRN #100 box 12/01/17 Unknown Rx NEBS] Carvedilol [Coreg] 6.25 mg PO BID #60 tablet 12/01/17 Unknown Rx Fe Fumarate/FA/Mv, Min Comb#15 1 each PO QDAY #30 capsule 12/01/17 Unknown Rx [Hemocyte Plus] Furosemide [Lasix TAB] 40 mg PO DAILY #30 tablet 12/01/17 Unknown Rx Ipratropium/Albuterol Sulfate 1 ampul IH QIDRT #100 ampul.neb 12/01/17 Unknown Rx [DUONEB *Not for PRN Use*] Iron,Carb/Vit C/Vit B12/Folic 1 tab PO DAILY #30 tablet 12/01/17 Unknown Rx [Iron 100 Plus Tablet] LORazepam [Ativan] 1 mg PO Q8H PRN #40 tablet 12/01/17 Unknown Rx Levofloxacin [Levaquin TAB] 750 mg PO Q24H #5 tablet 12/01/17 Unknown Rx Lisinopril [Zestril TAB] 10 mg PO QDAY #30 tablet 12/01/17 Unknown Rx Pravastatin [Pravachol] 40 mg PO QHS #30 tablet 12/01/17 Unknown Rx predniSONE [Deltasone] 10 mg PO QDAY PRN #80 tab 12/01/17 Unknown Rx ALBUTEROL Inhaler [Proair] 2 puff IH QID PRN #1 inhalation 01/22/18 Unknown Rx Azithromycin [Zithromax Z-SARAH] 0 mg PO DAILY #6 tab 01/22/18 Unknown Rx Prednisone [predniSONE 10 mg 10 mg PO .TAPER #1 tab.ds.pk 01/22/18 Unknown Rx (6-Day Pack, 21 Tabs)] ED Review of Systems ROS: Stated complaint: RYLEY Other details as noted in HPI Constitutional: denies: fever Eyes: denies: eye pain ENT: other (hoarseness) Respiratory: cough, shortness of breath, wheezing Musculoskeletal: myalgia Physical Exam - Physical Exam Vital Signs: Vital Signs 01/22/18 01/22/18 01/22/18 17:30 17:32 17:34 Temperature Pulse Rate 97 H 97 H Respiratory 28 H 17 21 Rate Blood Pressure 110/59 110/59 O2 Sat by Pulse 94 97 98 Oximetry 01/22/18 01/22/18 01/22/18 17:35 17:41 17:43 Temperature 98 F 98 F Pulse Rate 100 H Respiratory 17 16 Rate Blood Pressure 110/59 O2 Sat by Pulse 96 99 Oximetry Physical Exam: GENERAL: The patient is well-developed well-nourished female sitting on stretcher receiving nebulizer not appear to be in acute distress. [] HEENT: Normocephalic. Atraumatic. Extraocular motions are intact. Patient has moist mucous membranes. NECK: Supple. Trachea midline CHEST/LUNGS: Diffuse wheezing HEART/CARDIOVASCULAR: Regular. There is no tachycardia. There is no gallop rub or murmur. ABDOMEN: Abdomen is soft, nontender. Patient has normal bowel sounds. There is no abdominal distention. SKIN: There is no rash. There is no edema. There is no diaphoresis. NEURO: The patient is awake, alert, and oriented. The patient is cooperative. The patient has normal speech MUSCULOSKELETAL: There is no evidence of acute injury. ED Course Vital Signs 01/22/18 01/22/18 01/22/18 17:30 17:32 17:34 Temperature Pulse Rate 97 H 97 H Respiratory 28 H 17 21 Rate Blood Pressure 110/59 110/59 O2 Sat by Pulse 94 97 98 Oximetry 01/22/18 01/22/18 01/22/18 17:35 17:41 17:43 Temperature 98 F 98 F Pulse Rate 100 H Respiratory 17 16 Rate Blood Pressure 110/59 O2 Sat by Pulse 96 99 Oximetry - Reevaluation(s) Reevaluation #1: 01/22/18 18:52 Patient states she feels slightly improved. Will administer another nebulizer Reevaluation #2: 01/22/18 19:22 Patient states she feels improved and is ready to go home ED Medical Decision Making - Lab Data Result diagrams: 01/22/18 17:59 01/22/18 17:59 Laboratory Tests 01/22/18 01/22/18 17:59 17:59 WBC 9.8 RBC 4.50 Hgb 12.1 Hct 37.0 MCV 82 MCH 27 L MCHC 33 RDW 15.3 H Plt Count 303 Lymph % (Auto) 18.9 Mccreary % (Auto) 10.3 H Eos % (Auto) 4.8 H Baso % (Auto) 0.7 Lymph # 1.9 Mccreary # 1.0 H Eos # 0.5 H Baso # 0.1 Seg Neutrophils % 65.3 Seg Neutrophils # 6.4 Sodium 136 L Potassium 4.0 Chloride 99.4 Carbon Dioxide 24 Anion Gap 17 BUN 6 L Creatinine 0.4 L Estimated GFR > 60 BUN/Creatinine Ratio 15 Glucose 116 H Calcium 9.0 Total Creatine Kinase 61 CK-MB (CK-2) 1.8 CK-MB (CK-2) Rel Index 2.9 Troponin T < 0.010 NT-Pro-B Natriuret Pep 45.37 - EKG Data -: EKG Interpreted by Wy EKG shows normal: sinus rhythm Rate: normal - EKG Data When compared to previous EKG there are: no significant change Interpretation: unchanged when compared t (11/25/2017), other (left bundle branch block) - Radiology Data Radiology results: report reviewed (chest x-ray), image reviewed (chest x-ray) interpreted by me: Chest x-ray-right lower lobe platelike atelectasis. No pneumothorax [facility] [address] [place] [address] XRay Report Signed Patient: ROLANDO CHILD MR#: [id number] : 1960 Acct:[id number] Age/Sex: 57 / F ADM Date: 01/22/18 Loc: ED Attending Dr: Ordering Physician: AMANUEL PRIETO MD Date of Service: 01/22/18 Procedure(s): XR chest 1V ap Accession Number(s): [id number] cc: AMANUEL PRIETO MD Fluoro Time In Minutes: FINAL REPORT PROCEDURE: XR CHEST 1V AP TECHNIQUE: Chest radiograph anteroposterior view. CPT 28167 HISTORY: chest pain COMPARISON: Prior chest x- ray 11/25/2017 FINDINGS: Heart: Magnified due to projection, appears to be normal size.. Mediastinum/Vessels: Normal. Lungs/Pleural space: Thin linear band of increased density seen in the right lung base inferiorly medially suggesting a band of atelectasis. Lungs otherwise appear clear.. Bony thorax: No acute osseous abnormality. Life support devices: None. IMPRESSION: Linear band of atelectasis suspected right lung base. No other abnormalities are seen.. Transcribed By: DFN Dictated By: MICHAEL FERNANDEZ MD Electronically Authenticated By: MICHAEL FERNANDEZ MD Signed Date/Time: 01/22/181852 DD/ 52 TD/TT: 01/22/181852 - Differential Diagnosis COPD exacerbation, pneumonia, CHF, pneumothorax Critical care attestation.: If time is entered above; I have spent that time in minutes in the direct care of this critically ill patient, excluding procedure time. ED Disposition Clinical Impression: COPD exacerbation Disposition: DC-01 TO HOME OR SELFCARE Is pt being admited?: No Does the pt Need Aspirin: No Condition: Stable Instructions: Chronic Obstructive Pulmonary Disease (ED) Additional Instructions: Return to the emergency department immediately should you develop worsening symptoms, fever, inability to tolerate food or liquid or any other concerns. Prescriptions: ALBUTEROL Inhaler [Proair] 2 puff IH QID PRN #1 inhalation PRN Reason: Shortness Of Breath Azithromycin [Zithromax Z-SARAH] 0 mg PO DAILY #6 tab Prednisone [predniSONE 10 mg (6-Day Pack, 21 Tabs)] 10 mg PO .TAPER #1 tab.ds.pk Referrals: ROSAMARIA PRO MD [Staff Physician] - 3-5 Days (Dr. Pro is a electronic parts designer. Please follow-up with him for further evaluation) Time of Disposition: 19:21
[2018-01-22 18:17] LABS: Basophils # (Auto) 0.1 K/mm3 (0.0-0.1); Basophils % (Auto) 0.7 % (0.0-1.8); Eosinophils # (Auto) 0.5 K/mm3 (0.0-0.4); Eosinophils % (Auto) 4.8 % (0.0-4.3); Hemoglobin 12.1 gm/dl (10.1-14.3); Lymphocytes # (Auto) 1.9 K/mm3 (1.2-5.4); Lymphocytes % (Auto) 18.9 % (13.4-35.0); Mean Corpuscular HGB Conc 33 % (30-34); Mean Corpuscular Hemoglobin 27 pg (28-32); Mean Corpuscular Volume 82 fl (79-97); Monocytes % (Auto) 10.3 % (0.0-7.3); Platelet Count 303 K/mm3 (140-440); Red Cell Distribution Width 15.3 % (13.2-15.2)
[2018-01-22] MEDS: PROVENTIL IH ONE ×4 (18:31→18:59)
[2018-01-22] MEDS: ATROVENT IH ONE ×4 (18:34→18:59)
[2018-01-22 18:51] LABS: Creatine Kinase MB 1.8 ng/mL (0.0-4.0)
[2018-01-22 18:53] LABS: BUN/Creatinine Ratio 15; Blood Urea Nitrogen 6 mg/dL (7-17); Hemolysis Index 8
--- NOTE | 2018-01-22 18:57 | XRay Report ---
FINAL REPORT PROCEDURE: XR CHEST 1V AP TECHNIQUE: Chest radiograph anteroposterior view. CPT 54971 HISTORY: chest pain COMPARISON: Prior chest x-ray 11/25/2017 FINDINGS: Heart: Magnified due to projection, appears to be normal size.. Mediastinum/Vessels: Normal. Lungs/Pleural space: Thin linear band of increased density seen in the right lung base inferiorly medially suggesting a band of atelectasis. Lungs otherwise appear clear.. Bony thorax: No acute osseous abnormality. Life support devices: None. IMPRESSION: Linear band of atelectasis suspected right lung base. No other abnormalities are seen..
[2018-01-22 19:43] VITALS: BP 114/64
== END 2018-01-22 19:43 | disposition home or self-care (01) ==
LOC: ED 17:29
DX: J44.1 Chronic obstructive pulmonary disease with (acute) exacerbation (principal); I10 Essential (primary) hypertension; J45.909 Unspecified asthma, uncomplicated; Z87.891 Personal history of nicotine dependence; Z98.51 Tubal ligation status
CPT/HCPCS: 36415; 71045; 80048; 82550; 82553; 83880; 84484; 85025; 93005; 93010; 94640

== ENCOUNTER 2018-03-15 17:59 | Emergency (ER) | payer MEDICARE ==
--- NOTE | 2018-03-15 18:49 | Emergency Department Report ---
ED Shortness of Breath HPI - General Chief Complaint: Dyspnea/Respdistress Stated Complaint: RYLEY Time Seen by Provider: 03/15/18 18:18 Source: patient, EMS Mode of arrival: Stretcher Limitations: No Limitations - History of Present Illness Initial Comments: Ms. Hand is 57 yo female with hx of end stage COPD with oxygen dependence on 2.5 L oxygen at home who presents with shortness of breath. Ms. Hand feels that the heat and outdoor exposure caused her exacerbation. She feels much better after receiving magnesium and solumedrol from EMS. She desires to go home. Denies fever. Denies productive cough. Denies chest pain. Takes Prednisone 10 mg daily. Patient denies tobacco use. However, daughter suspects that she still smokes. Hx obtained from packet of information patient provided and recent discharge summary in November. Patient's PCP Dr. Joel [facility] Director Dr. Mireya Lyn According to cardiac cath, August 2014, patient has normal coronary arteries with EF 40-45% MD Complaint: shortness of breath -: Gradual, This afternoon Known History Of: COPD, congestive heart failure - Related Data Home Medications Medication Instructions Recorded Confirmed Last Taken Albuterol *Only Ed* [Proventil 2.5 mg IH Q4H PRN 07/12/16 07/12/16 07/12/16 0.5% NEBS] Spironolactone [Aldactone] 25 mg PO QDAY 07/12/16 07/12/16 Unknown Tiotropium [Spiriva] 1 puff IH BID 07/12/16 07/12/16 07/11/16 Tiotropium [Spiriva] 18 mcg IH BID 07/12/16 07/12/16 Unknown Previous Rx's Medication Instructions Recorded Last Taken Type Symbicort 160-4.5 (Nf) 1 puff INHALATION BID #1 12/03/15 Unknown Rx Albuterol Sulfate [Albuterol 0.63% 0.63 mg IH TID PRN #100 box 12/01/17 Unknown Rx NEBS] Carvedilol [Coreg] 6.25 mg PO BID #60 tablet 12/01/17 Unknown Rx Fe Fumarate/FA/Mv, Min Comb#15 1 each PO QDAY #30 capsule 12/01/17 Unknown Rx [Hemocyte Plus] Furosemide [Lasix TAB] 40 mg PO DAILY #30 tablet 12/01/17 Unknown Rx Ipratropium/Albuterol Sulfate 1 ampul IH QIDRT #100 ampul.neb 12/01/17 Unknown Rx [DUONEB *Not for PRN Use*] Iron,Carb/Vit C/Vit B12/Folic 1 tab PO DAILY #30 tablet 12/01/17 Unknown Rx [Iron 100 Plus Tablet] LORazepam [Ativan] 1 mg PO Q8H PRN #40 tablet 12/01/17 Unknown Rx Lisinopril [Zestril TAB] 10 mg PO QDAY #30 tablet 12/01/17 Unknown Rx Pravastatin [Pravachol] 40 mg PO QHS #30 tablet 12/01/17 Unknown Rx levoFLOXacin [Levaquin TAB] 750 mg PO Q24H #5 tablet 12/01/17 Unknown Rx predniSONE [Deltasone] 10 mg PO QDAY PRN #80 tab 12/01/17 Unknown Rx ALBUTEROL Inhaler (OR & NICU) 2 puff IH QID PRN #1 inhalation 01/22/18 Unknown Rx [Proair] Azithromycin [Zithromax Z-SARAH] 0 mg PO DAILY #6 tab 01/22/18 Unknown Rx Prednisone [predniSONE 10 mg 10 mg PO .TAPER #1 tab.ds.pk 01/22/18 Unknown Rx (6-Day Pack, 21 Tabs)] Allergies Allergy/AdvReac Type Severity Reaction Status Date / Time No Known Allergies Allergy Verified 08/06/15 17:36 ED Review of Systems ROS: Stated complaint: RYLEY Other details as noted in HPI Comment: All other systems reviewed and negative Constitutional: denies: fever, malaise Respiratory: cough (chronic nonproductive) Cardiovascular: denies: chest pain ED Past Medical Hx - Past Medical History Hx Hypertension: Yes Hx Heart Attack/AMI: No Hx Congestive Heart Failure: No Hx Diabetes: No Hx Deep Vein Thrombosis: No Hx Asthma: Yes Hx COPD: Yes - Surgical History Hx Coronary Stent: No Hx Pacemaker: No Hx Internal Defibrillator: No Additional Surgical History: Bilateral tubal ligation - Social History Smoking Status: Former Smoker Substance Use Type: None, Alcohol - Medications Home Medications: Home Medications Medication Instructions Recorded Confirmed Last Taken Type Symbicort 160-4.5 (Nf) 1 puff INHALATION BID #1 12/03/15 07/12/16 Unknown Rx Albuterol *Only Ed* [Proventil 2.5 mg IH Q4H PRN 07/12/16 07/12/16 07/12/16 History 0.5% NEBS] Spironolactone [Aldactone] 25 mg PO QDAY 07/12/16 07/12/16 Unknown History Tiotropium [Spiriva] 1 puff IH BID 07/12/16 07/12/16 07/11/16 History Tiotropium [Spiriva] 18 mcg IH BID 07/12/16 07/12/16 Unknown History Albuterol Sulfate [Albuterol 0.63% 0.63 mg IH TID PRN #100 box 12/01/17 Unknown Rx NEBS] Carvedilol [Coreg] 6.25 mg PO BID #60 tablet 12/01/17 Unknown Rx Fe Fumarate/FA/Mv, Min Comb#15 1 each PO QDAY #30 capsule 12/01/17 Unknown Rx [Hemocyte Plus] Furosemide [Lasix TAB] 40 mg PO DAILY #30 tablet 12/01/17 Unknown Rx Ipratropium/Albuterol Sulfate 1 ampul IH QIDRT #100 ampul.neb 12/01/17 Unknown Rx [DUONEB *Not for PRN Use*] Iron,Carb/Vit C/Vit B12/Folic 1 tab PO DAILY #30 tablet 12/01/17 Unknown Rx [Iron 100 Plus Tablet] LORazepam [Ativan] 1 mg PO Q8H PRN #40 tablet 12/01/17 Unknown Rx Lisinopril [Zestril TAB] 10 mg PO QDAY #30 tablet 12/01/17 Unknown Rx Pravastatin [Pravachol] 40 mg PO QHS #30 tablet 12/01/17 Unknown Rx levoFLOXacin [Levaquin TAB] 750 mg PO Q24H #5 tablet 12/01/17 Unknown Rx predniSONE [Deltasone] 10 mg PO QDAY PRN #80 tab 12/01/17 Unknown Rx ALBUTEROL Inhaler (OR & NICU) 2 puff IH QID PRN #1 inhalation 01/22/18 Unknown Rx [Proair] Azithromycin [Zithromax Z-SARAH] 0 mg PO DAILY #6 tab 01/22/18 Unknown Rx Prednisone [predniSONE 10 mg 10 mg PO .TAPER #1 tab.ds.pk 01/22/18 Unknown Rx (6-Day Pack, 21 Tabs)] ED Physical Exam - General Limitations: No Limitations General appearance: alert, in no apparent distress, other (speaking full word sentences) - Head Head exam: Present: atraumatic, normocephalic - Eye Eye exam: Present: normal appearance - ENT ENT exam: Present: mucous membranes moist - Neck Neck exam: Present: normal inspection. Absent: tenderness, meningismus - Respiratory Respiratory exam: Present: normal lung sounds bilaterally. Absent: respiratory distress, wheezes, rales, rhonchi, accessory muscle use, decreased breath sounds , prolonged expiratory - Cardiovascular Cardiovascular Exam: Present: regular rate, normal rhythm, normal heart sounds. Absent: systolic murmur, diastolic murmur, rubs, gallop - GI/Abdominal GI/Abdominal exam: Present: soft, normal bowel sounds. Absent: distended, tenderness - Extremities Exam Extremities exam: Present: normal inspection - Back Exam Back exam: Present: normal inspection - Neurological Exam Neurological exam: Present: alert, oriented X3 - Psychiatric Psychiatric exam: Present: normal affect, normal mood - Skin Skin exam: Present: warm, dry, intact, normal color. Absent: rash ED Course Vital Signs 03/15/18 03/15/18 03/15/18 18:14 18:15 18:31 Temperature 98.4 F Blood Pressure 109/64 109/64 O2 Sat by Pulse 93 93 Oximetry ED Medical Decision Making - Medical Decision Making Ms. Hand presents with mild COPD exacerbation. She feels much better. Desires to be discharge. She has clear breath sounds with good air movement. Dc'd home Critical care attestation.: If time is entered above; I have spent that time in minutes in the direct care of this critically ill patient, excluding procedure time. ED Disposition Clinical Impression: COPD (chronic obstructive pulmonary disease) with acute bronchitis Disposition: DC-01 TO HOME OR SELFCARE Is pt being admited?: No Does the pt Need Aspirin: No Condition: Stable Instructions: Chronic Obstructive Pulmonary Disease (ED) Time of Disposition: 18:55
[2018-03-15 19:16] VITALS: BP 118/72
--- NOTE | 2018-03-15 19:29 | XRay Report ---
FINAL REPORT PROCEDURE: XR CHEST ROUTINE 2V TECHNIQUE: PA and lateral chest radiographs were obtained. CPT 97130 HISTORY: Shortness of breath COMPARISON: No prior studies are available for comparison. FINDINGS: Heart: Normal. Mediastinum/Vessels: Normal. Lungs/Pleural space: No infiltrate, effusion, or pneumothorax. Bony thorax: No acute osseous abnormality. Other: IMPRESSION: No pulmonary infiltrates.
== END 2018-03-15 19:13 | disposition home or self-care (01) ==
LOC: ED 17:59
DX: J44.9 Chronic obstructive pulmonary disease, unspecified (principal); I10 Essential (primary) hypertension; Z98.890 Other specified postprocedural states; Z87.891 Personal history of nicotine dependence; Z79.899 Other long term (current) drug therapy; Z99.81 Dependence on supplemental oxygen
CPT/HCPCS: 71046

== ENCOUNTER 2018-04-15 02:10 | Emergency (ER) | payer MEDICARE ==
--- NOTE | 2018-04-15 02:37 | Emergency Department Report ---
ED CPR HPI - General Stated Complaint: CARDIAC ARREST Time Seen by Provider: 04/15/18 02:10 Source: EMS, old records reviewed Mode of arrival: Stretcher Limitations: Altered Mental Status - History of Present Illness Initial Comments: 57-year-old with a past medical history COPD, asthma, and hypertension presents to the Hospital complains of cardiac arrest. Last known well time 30 minutes prior to EMS notification. Unwitnessed arrest. Patient apparently had episodes of shortness of breath earlier today and EMS was called. Patient was provided a neb treatment and refused transfer to the hospital at this time. Patient also was seen and evaluated here yesterday for wound dehisced since after dermoid cyst surgery and was started on clindamycin (visit under different Medical record number). She presents with discharge and prescription. Patient was asystole upon EMS arrival and after 30 minutes of resuscitation effort patient remains in asystole. Total down time approximately one hour prior to arrival. She received epinephrine 4, intubation with 7.0 ET tube. Glucose 140' s - Related Data Home Medications Medication Instructions Recorded Confirmed Last Taken Albuterol *Only Ed* [Proventil 2.5 mg IH Q4H PRN 07/12/16 07/12/16 07/12/16 0.5% NEBS] Spironolactone [Aldactone] 25 mg PO QDAY 07/12/16 07/12/16 Unknown Tiotropium [Spiriva] 1 puff IH BID 07/12/16 07/12/16 07/11/16 Tiotropium [Spiriva] 18 mcg IH BID 07/12/16 07/12/16 Unknown Previous Rx's Medication Instructions Recorded Last Taken Type Symbicort 160-4.5 (Nf) 1 puff INHALATION BID #1 12/03/15 Unknown Rx Albuterol Sulfate [Albuterol 0.63% 0.63 mg IH TID PRN #100 box 12/01/17 Unknown Rx NEBS] Carvedilol [Coreg] 6.25 mg PO BID #60 tablet 12/01/17 Unknown Rx Fe Fumarate/FA/Mv, Min Comb#15 1 each PO QDAY #30 capsule 12/01/17 Unknown Rx [Hemocyte Plus] Furosemide [Lasix TAB] 40 mg PO DAILY #30 tablet 12/01/17 Unknown Rx Ipratropium/Albuterol Sulfate 1 ampul IH QIDRT #100 ampul.neb 12/01/17 Unknown Rx [DUONEB *Not for PRN Use*] Iron,Carb/Vit C/Vit B12/Folic 1 tab PO DAILY #30 tablet 12/01/17 Unknown Rx [Iron 100 Plus Tablet] LORazepam [Ativan] 1 mg PO Q8H PRN #40 tablet 12/01/17 Unknown Rx Lisinopril [Zestril TAB] 10 mg PO QDAY #30 tablet 12/01/17 Unknown Rx Pravastatin [Pravachol] 40 mg PO QHS #30 tablet 12/01/17 Unknown Rx levoFLOXacin [Levaquin TAB] 750 mg PO Q24H #5 tablet 12/01/17 Unknown Rx predniSONE [Deltasone] 10 mg PO QDAY PRN #80 tab 12/01/17 Unknown Rx ALBUTEROL Inhaler (OR & NICU) 2 puff IH QID PRN #1 inhalation 01/22/18 Unknown Rx [Proair] Azithromycin [Zithromax Z-SARAH] 0 mg PO DAILY #6 tab 01/22/18 Unknown Rx Prednisone [predniSONE 10 mg 10 mg PO .TAPER #1 tab.ds.pk 01/22/18 Unknown Rx (6-Day Pack, 21 Tabs)] Allergies Allergy/AdvReac Type Severity Reaction Status Date / Time No Known Allergies Allergy Verified 08/06/15 17:36 ED Review of Systems ROS: Stated complaint: CARDIAC ARREST Other details as noted in HPI Comment: Unobtainable due to pts medical conditions ED Past Medical Hx - Past Medical History Hx Hypertension: Yes Hx Heart Attack/AMI: No Hx Congestive Heart Failure: No Hx Diabetes: No Hx Deep Vein Thrombosis: No Hx Asthma: Yes Hx COPD: Yes - Surgical History Hx Coronary Stent: No Hx Pacemaker: No Hx Internal Defibrillator: No Additional Surgical History: Bilateral tubal ligation - Social History Smoking Status: Former Smoker Substance Use Type: None, Alcohol - Medications Home Medications: Home Medications Medication Instructions Recorded Confirmed Last Taken Type Symbicort 160-4.5 (Nf) 1 puff INHALATION BID #1 12/03/15 07/12/16 Unknown Rx Albuterol *Only Ed* [Proventil 2.5 mg IH Q4H PRN 07/12/16 07/12/16 07/12/16 History 0.5% NEBS] Spironolactone [Aldactone] 25 mg PO QDAY 07/12/16 07/12/16 Unknown History Tiotropium [Spiriva] 1 puff IH BID 07/12/16 07/12/16 07/11/16 History Tiotropium [Spiriva] 18 mcg IH BID 07/12/16 07/12/16 Unknown History Albuterol Sulfate [Albuterol 0.63% 0.63 mg IH TID PRN #100 box 12/01/17 Unknown Rx NEBS] Carvedilol [Coreg] 6.25 mg PO BID #60 tablet 12/01/17 Unknown Rx Fe Fumarate/FA/Mv, Min Comb#15 1 each PO QDAY #30 capsule 12/01/17 Unknown Rx [Hemocyte Plus] Furosemide [Lasix TAB] 40 mg PO DAILY #30 tablet 12/01/17 Unknown Rx Ipratropium/Albuterol Sulfate 1 ampul IH QIDRT #100 ampul.neb 12/01/17 Unknown Rx [DUONEB *Not for PRN Use*] Iron,Carb/Vit C/Vit B12/Folic 1 tab PO DAILY #30 tablet 12/01/17 Unknown Rx [Iron 100 Plus Tablet] LORazepam [Ativan] 1 mg PO Q8H PRN #40 tablet 12/01/17 Unknown Rx Lisinopril [Zestril TAB] 10 mg PO QDAY #30 tablet 12/01/17 Unknown Rx Pravastatin [Pravachol] 40 mg PO QHS #30 tablet 12/01/17 Unknown Rx levoFLOXacin [Levaquin TAB] 750 mg PO Q24H #5 tablet 12/01/17 Unknown Rx predniSONE [Deltasone] 10 mg PO QDAY PRN #80 tab 12/01/17 Unknown Rx ALBUTEROL Inhaler (OR & NICU) 2 puff IH QID PRN #1 inhalation 01/22/18 Unknown Rx [Proair] Azithromycin [Zithromax Z-SARAH] 0 mg PO DAILY #6 tab 01/22/18 Unknown Rx Prednisone [predniSONE 10 mg 10 mg PO .TAPER #1 tab.ds.pk 01/22/18 Unknown Rx (6-Day Pack, 21 Tabs)] ED Physical Exam - Other Other exam information: General: Unresponsive Head exam: Atraumatic Eyes exam: Pupils fixed and dilated ENT: Orally intubated with 7.0 ET tube Neck exam: Normal inspection Respiratory exam: No spontaneous respirations breath sounds equal bilaterally with bagging. No breath sounds over the epigastrium Cardiovascular: Asystole, no palpable pulse, no audible rhythm Abdomen: Soft nondistended Extremity: No deformity, no spontaneous movement Back: Normal Inspection Neurologic: GCS equal 3 Psychiatric: Unresponsive Skin: Warm, and intact ED Medical Decision Making - Medical Decision Making She presents in asystole despite 30 minutes of resuscitation efforts and 1 hour total down time prior to arrival. Resuscitation efforts were continued and patient received an additional 3 doses of epi, 1 amp of sodium bicarbonate, flank dose of calcium, and we verified glucose in the 140s. Despite resuscitation efforts patient remained in asystole and time of was 2:18am - Differential Diagnosis COPD, PE, arrhythmia, ME Critical Care Time: Yes Critical care time in (mins) excluding proc time.: 15 Critical care attestation.: If time is entered above; I have spent that time in minutes in the direct care of this critically ill patient, excluding procedure time. ED Disposition Clinical Impression: Cardiopulmonary arrest Disposition: DC-20 Is pt being admited?: No Condition: Stable Time of Disposition: 02:57
[2018-04-15] MEDS ORDERED: CALCIUM CHLORIDE IV ONE (03:00)
[2018-04-15] MEDS ORDERED: ADRENALIN ONE (03:00)
[2018-04-15] MEDS ORDERED: SODIUM BICARBONATE IV ONE (03:00)
== END 2018-04-15 06:15 ==
LOC: ED 02:10
DX: I46.9 Cardiac arrest, cause unspecified (principal); I10 Essential (primary) hypertension; J44.9 Chronic obstructive pulmonary disease, unspecified; Z98.51 Tubal ligation status; Z87.891 Personal history of nicotine dependence
CPT/HCPCS: 82962; 92950; 99285; J0171